=== PATIENT | female | born 1935 | race Caucasian/White ===

== ENCOUNTER → 2017-04-19 | Emergency (ER) | payer OTHER ==
[~2017-04-19] MED LIST: BACITRACIN 0.9 GM PACKET ONE; BACITRACIN 30 GM TUBE TOPICAL OINTMENT ONE
[2017-04-19 15:01] VITALS: BP 136/70; PULSE 69; TEMP 97.6; BMI 32.4
--- NOTE | 2017-04-19 15:05 | PDOC ---
History of Present Illness - General History Source: Patient, Old Records Exam Limitations: No Limitations - History of Present Illness Initial Comments: 04/19/17 15:09 The patient is an 81-year-old woman, accompanied by her daughter, with a significant past medical history of hypertension, hypercholesterolemia, atrial fibrillation(status post pacemaker), congestive heart failure (diastolic), myocardial perforation, acute kidney injury who presents to the emergency department for further evaluation status post fall. No loss of consciousness, chest pain, visual changes, palpitations, headaches, lightheadedness, dizziness , nausea, vomiting prior/post episode. Patient was going up the stairs when she possibly missed a step and fell backwards. She reports falling down approximately 7-8 steps injuring her head. No neck injury/pain. She reports that during her fall she sustained an abrasion over her left arm. Approximately 20 minutes post episode, she was able to get up and ambulate with assistance. No weakness, numbness or tingling sensations to her extremities. Last tetanus vaccination is unknown. Allergies: Sulfonamide Antibiotics. Past Surgical History: Pacemaker placement. Social History: Former smoker. No EtOH and recreational drug use. Primary Care Physician: Dr. Shannan Pedraza <Giovanna Perez - Last Filed: 04/19/17 15:38> <Morro Nunez - Last Filed: 04/19/17 16:53> - General Stated Complaint: FALL (PACEMAKER) Time Seen by Provider: 04/19/17 15:05 Past History <Giovanna Perez - Last Filed: 04/19/17 15:38> - Past Medical History Cardiac Disorders: Yes HTN: Yes Hypercholesterolemia: Yes Seizures: Yes - Psycho/Social/Smoking Cessation Hx Anxiety: No Suicidal Ideation: No Smoking History: Former smoker Have you smoked in the past 12 months: No Number of Cigarettes Smoked Daily: 0 If you are a former smoker, when did you quit?: 40yrs Information on smoking cessation initiated: No Hx Alcohol Use: No Drug/Substance Use Hx: No Substance Use Type: None <Morro Nunez - Last Filed: 04/19/17 16:53> - Past Medical History Allergies/Adverse Reactions: Allergies Allergy/AdvReac Type Severity Reaction Status Date / Time Sulfa (Sulfonamide Allergy Verified 04/19/17 15:02 Antibiotics) Home Medications: Ambulatory Orders Aspirin 81 mg PO DAILY 12/17/13 Levothyroxine [Synthroid -] 88 mcg PO DAILY 12/17/13 Ferrous Gluconate [Iron] 325 mg PO TID 08/17/14 Amlodipine Besylate [Norvasc -] 10 mg PO DAILY 10/05/15 Lactobacillus Acidophilus [Acidophilus] 1 each PO DAILY 10/05/15 Lactobacillus Combo No.10 [Probiotic] 1 each PO DAILY 10/05/15 Metoprolol Tartrate [Lopressor] 50 mg PO BID 10/05/15 Multivit-Min/Iron/Folic/Lutein [Centrum Silver Women Tablet] 1 each PO DAILY [place]-3 Fatty Acids [Fish Oil] 1,200 mg PO DAILY 10/05/15 Omeprazole [Prilosec (RX)] 20 mg PO DAILY 10/05/15 Valsartan/Hydrochlorothiazide [Diovan Hct 320-12.5 mg Tab] 1 combo PO DAILY Review of Systems - Review of Systems Able to Perform ROS?: Yes Comments:: 04/19/17 15:20 CONSTITUTIONAL: Absent: fever, chills, diaphoresis, generalized weakness, malaise, loss of appetite HEENT: Absent: rhinorrhea, nasal congestion, throat pain, throat swelling, difficulty swallowing, mouth swelling, ear pain, eye pain, visual Changes CARDIOVASCULAR: Absent: chest pain, syncope, palpitations, irregular heart rate , lightheadedness, peripheral edema RESPIRATORY: Absent: cough, shortness of breath, dyspnea with exertion, orthopnea, wheezing, stridor, hemoptysis GASTROINTESTINAL: Absent: abdominal pain, abdominal distension, nausea, vomiting , diarrhea, constipation, melena, hematochezia GENITOURINARY: Absent: dysuria, frequency, urgency, hesitancy, hematuria, flank pain, genital pain MUSCULOSKELETAL: Absent: myalgia, arthralgia, joint swelling SKIN: Present: Abrasion to the left forearm. Absent: rash, itching, pallor HEMATOLOGIC/IMMUNOLOGIC: Absent: easy bleeding, easy bruising, lymphadenopathy, frequent infections ENDOCRINE:Absent: unexplained weight gain, unexplained weight loss, heat intolerance, cold intolerance NEUROLOGIC: Absent: headache, focal weakness or paresthesias, dizziness, unsteady gait, seizure, mental status changes, bladder or bowel incontinence PSYCHIATRIC: Absent: anxiety, depression, suicidal or homicidal ideation, hallucinations <Perez,Giovanna - Last Filed: 04/19/17 15:38> *Physical Exam - Vital Signs Last Vital Signs Temp Pulse Resp BP Pulse Ox 97.6 F 69 18 136/70 98 04/19/17 14:50 04/19/17 14:50 04/19/17 14:50 04/19/17 14:50 04/19/17 14:50 - Physical Exam Comments: 04/19/17 15:20 GENERAL: Patient is awake, alert and in no acute distress. Speech is clear and appropriate. HEAD: Atraumatic and nontender. HEENT: Pupils are equal round and reactive to light, extraocular movements are intact. The tympanic membranes are clear, no hemotympanum. No facial deformity. No facial bone tenderness or step-off. No nasal septal hematoma. The oropharynx is clear. NECK: The trachea is midline, there is no stridor. There is no midline cervical spine tenderness, full range of motion of neck. CHEST: Non-tender, no ecchymosis or abrasions. Equal chest wall expansion bilaterally. No flail segments. Lungs are clear to auscultation bilaterally. CARDIOVASCULAR: S1-S2, regular rate and rhythm. No murmurs or rubs. ABDOMEN: Soft, nontender, nondistended. Bowel sounds are normoactive. There is no abdominal or flank ecchymosis. BACK/PELVIS: There is no midline thoracic or lumbosacral spine tenderness or step-off. Pelvis is stable and nontender. EXTREMITIES: Zaria is some limited range of motion to the left shoulder secondary to pain without any bony tenderness. There is no extremity deformity or joint swelling. 2+ distal pulses throughout. NEURO: Alert and oriented x3. Cranial nerves II through XII are intact. 5 out of 5 motor strength x4 extremities. No gross sensory deficits. [id number] is intact. No pronator drift. Gait is stable. SKIN: There is a 3 cm abrasion of the left forearm without any underlying bony tenderness. No hematomas, lacerations. PSYCH: Affect is appropriate <Giovanna Perez - Last Filed: 04/19/17 15:38> - Vital Signs Last Vital Signs Temp Pulse Resp BP Pulse Ox 97.6 F 69 18 136/70 98 04/19/17 14:50 04/19/17 14:50 04/19/17 14:50 04/19/17 14:50 04/19/17 14:50 <Morro Nunez - Last Filed: 04/19/17 16:53> Heart Score/ECG Review - ECG Intrepretation Comment:: 04/19/17 15:07 Normal sinus rhythm at 60, normal axis, normal intervals, no ST changes P waves are very flat and difficult to see, however I do feel that there is a regular SD interval Prior EKG shows similar P wave morphology 04/19/17 16:39 <Morro Nunez - Last Filed: 04/19/17 16:53> ED Treatment Course - LABORATORY CBC & Chemistry Diagram: 04/19/17 15:30 04/19/17 15:30 <Morro Nunez - Last Filed: 04/19/17 16:53> Medical Decision Making - Medical Decision Making 04/19/17 15:07 She is well appearing and in no acute distress She has no CTLS midline tenderness She has no bony tenderness She has a small abrasion of the left forearm (Tetanus in last 5 years) I do not see a scalp laceration, and she denies any pain in the scalp Will CT head Will obtain plain XRays of left shoulder and chest I have a very low index of suspicion for bony injury She very clearly describes a mechanical fall She has no complaints other than the abrasion and mild pain in left shoulder with active range of motion 04/19/17 16:00 04/19/17 16:19 CT head report noted, without acute intracranial pathology 04/19/17 16:24 Emergency department XRay interpretation: no evidence of acute traumatic injury on chest and shoulder films 04/19/17 16:52 Labs noted Repeat examination without evidence of injury not previously noted Creatinine is at baseline She would like to go home Clinical impression: Closed head injury without evidence of concussion Left shoulder contusion Forearm abrasion I reviewed results and discussed final diagnoses with the patient and her daughter. I answered all of their questions. They understood the need for close followup and agreed to see the PCP within 24 hours. They expressed satisfaction with the care that they received. They will return to the ED with any new, worsening or persistent symptoms. They will verify that the last tetanus vaccination was within 5 years. <Morro Nunez - Last Filed: 04/19/17 16:53> *DC/Admit/Observation/Transfer - Attestations Scribe Attestion: 04/19/17 15:20 Documentation prepared by Giovanna Perez, acting as medical care manager for Morro Nunez MD. <Giovanna Perez - Last Filed: 04/19/17 15:38> <Morro Nunez - Last Filed: 04/19/17 16:53> Diagnosis at time of Disposition: Closed head injury, Shoulder contusion, Abrasion - Discharge Dispostion Disposition: HOME Condition at time of disposition: Improved - Referrals Referrals: Shannan Pedraza [Primary Care Provider] - - Patient Instructions Printed Discharge Instructions: DI for Closed Head Injury, DI for Abrasion, Shoulder Sprain Additional Instructions: Please make sure that your doctor reviews the results of you emergency department visit. You must see your primary care doctor within 24 hours for a repeat evaluation as the emergency department visit cannot serve as a comprehensive and definitive evaluation and you require follow-up. Return to the ER with any new, worsening or persistent symptoms. Take Tylenol 500mg 5 times daily as needed for pain. - Post Discharge Activity Work/School Note: Back to Work
[2017-04-19 15:49] LABS: BASOPHIL 0.8 % (0-2.0); MCH 29.6 pg (25.7-33.7); MCHC 32.5 g/dl (32.0-36.0); MEAN CELL VOLUME 91.1 fl (80-96); MEAN PLT VOLUME 9.7 fl (7.5-11.1); NEUTROPHILS 73.9 % (42.8-82.8); PLATELET COUNT 197 K/MM3 (134-434); RDW 14.1 % (11.6-15.6); WHITE BLOOD COUNT 9.8 K/mm3 (4.0-10.0)
[2017-04-19 16:13] LABS: ALBUMIN 3.6 g/dl (3.4-5.0); ANION GAP 10 (8-16); BILIRUBIN,TOTAL 0.6 mg/dL (0.2-1.0); CALCIUM 9.1 mg/dL (8.5-10.1); CO2 25 mmol/L (21-32); COCKROFT - GAULT 29.6225; CREATININE 1.8 mg/dL (0.55-1.02); GLUCOSE,RANDOM 101 mg/dL (74-106); MAGNESIUM 2.4 mg/dL (1.8-2.4); SGOT/AST 27 U/L (15-37); SGPT/ALT 35 U/L (12-78); TOT PROT 7.3 g/dl (6.4-8.2)
[2017-04-19 16:16] LABS: ALK PHOS 71 U/L (45-117); TROPONIN I < 0.02 ng/ml (0.00-0.05)
--- NOTE | 2017-04-19 16:28 | EKG ---
Test Reason : Blood Pressure : / mmHG Vent. Rate : 058 BPM Atrial Rate : 066 BPM P-R Int : 000 ms QRS Dur : 090 ms QT Int : 406 ms P-R-T Axes : 000 008 020 degrees QTc Int : 398 ms SINUS BRADYCARDIA Confirmed by TALIA DAILEY MD ([id number]) on 04/19/2017 4:28:24 PM Referred By: Confirmed By:TALIA DAILEY MD
== END | disposition home or self-care (01) ==
LOC: JER 14:48
DX: S09.8XXA Other specified injuries of head, initial encounter (principal); S40.012A Contusion of left shoulder, initial encounter; S50.812A Abrasion of left forearm, initial encounter; W10.8XXA Fall (on) (from) other stairs and steps, initial encounter; Y93.89 Activity, other specified; Y92.89 Other specified places as the place of occurrence of the external cause; I10 Essential (primary) hypertension; E78.00 Pure hypercholesterolemia, unspecified; I48.91 Unspecified atrial fibrillation; Z79.01 Long term (current) use of anticoagulants; I50.30 Unspecified diastolic (congestive) heart failure; I25.2 Old myocardial infarction; Z95.0 Presence of cardiac pacemaker
CPT/HCPCS: 36415; 70450-TC; 71010-TC; 73030-TC-LT; 80053; 82550; 83735; 84484; 85025; 85610; 93005; 93010; 99281-25

== ENCOUNTER 2017-09-25 18:25 | Inpatient (IN) | payer OTHER, BC ==
--- NOTE | 2017-09-25 19:30 | PDOC ---
History of Present Illness - General Chief Complaint: Pain Stated Complaint: ABDOMINAL PAIN Time Seen by Provider: 09/25/17 18:56 Past History - Past Medical History Allergies/Adverse Reactions: Allergies Allergy/AdvReac Type Severity Reaction Status Date / Time Sulfa (Sulfonamide Allergy Verified 09/25/17 19:07 Antibiotics) Home Medications: Ambulatory Orders Aspirin 81 mg PO DAILY 12/17/13 Levothyroxine [Synthroid -] 88 mcg PO DAILY 12/17/13 Amlodipine Besylate [Norvasc -] 10 mg PO DAILY 10/05/15 Lactobacillus Acidophilus [Acidophilus] 1 each PO DAILY 10/05/15 Lactobacillus Combo No.10 [Probiotic] 1 each PO DAILY 10/05/15 Metoprolol Tartrate [Lopressor] 50 mg PO BID 10/05/15 Multivit-Min/Iron/Folic/Lutein [Centrum Silver Women Tablet] 1 each PO DAILY [place]-3 Fatty Acids [Fish Oil] 1,200 mg PO DAILY 10/05/15 Valsartan/Hydrochlorothiazide [Diovan Hct 320-12.5 mg Tab] 1 combo PO DAILY Famotidine [Pepcid] 20 mg PO DAILY 09/25/17 Cardiac Disorders: Yes (pacemaker) COPD: No HTN: Yes Hypercholesterolemia: Yes Seizures: Yes - Surgical History Cardiac Surgery: Yes (pacemaker) - Suicide/Smoking/Psychosocial Hx Smoking History: Never smoked Have you smoked in the past 12 months: No Number of Cigarettes Smoked Daily: 0 If you are a former smoker, when did you quit?: 40yrs Information on smoking cessation initiated: No Hx Alcohol Use: No Drug/Substance Use Hx: No Substance Use Type: None *Physical Exam - Vital Signs Last Vital Signs Temp Pulse Resp BP Pulse Ox 97.4 F L 63 18 154/74 100 09/25/17 18:49 09/25/17 18:49 09/25/17 18:49 09/25/17 18:49 09/25/17 18:49 ED Treatment Course - LABORATORY CBC & Chemistry Diagram: 09/25/17 20:30 09/25/17 20:30 *DC/Admit/Observation/Transfer Diagnosis at time of Disposition: Cholecystitis, Elevated liver enzymes Vomiting Qualifiers: Vomiting type: unspecified Vomiting Intractability: non-intractable Nausea presence: with nausea Qualified Code(s): R11.2 - Nausea with vomiting, unspecified; R11.2 - Nausea with vomiting, unspecified - Discharge Dispostion Admit: Yes - Referrals Referrals: Shannan Pedraza [Primary Care Provider] -
--- NOTE | 2017-09-25 19:33 | PDOC ---
Attending Attestation - Resident Resident Name: Shahid Vergara - ED Attending Attestation I have performed the following: I have examined & evaluated the patient, The case was reviewed & discussed with the resident, I agree w/resident's findings & plan, Exceptions are as noted - HPI HPI: 09/25/17 19:31 82 yo female BIBA for intermittent abdominal pain,increased belching that started today. Denies chest pain 09/26/17 01:19 alert and conversant 82 yo female p/w colicky epigastric pain Head ncat oral extensive crown and bridge work neck supple lungs cta b/l cvs [id number] abd epigastric tenderness, no rebound ext no deformity,moving all extremities neuro axox3,no gross focal neuro deficits 09/26/17 02:27 - Physicial Exam PE: 09/26/17 02:27 physical exam is above - Medical Decision Making 09/26/17 01:23 LFTs elevated,pt c/o nausea US: cholethiasis, GB wall thickening ,enlarged CBD leukocytosis IMP cholecystitis plan IV antibiotics,zofran,admit 09/26/17 01:26 09/26/17 02:27
--- NOTE | 2017-09-25 21:08 | PDOC ---
History of Present Illness - General Chief Complaint: Pain Stated Complaint: ABDOMINAL PAIN Time Seen by Provider: 09/25/17 18:56 History Source: Patient Exam Limitations: No Limitations - History of Present Illness Initial Comments: 09/25/17 21:01 Patient is an 82F with history of afib, CAD s/p cath and pacemaker, tachy-nadir syndrome, hiatal hernia, HLD, and hypothyroidism here today complaining of sudden onset of abdominal pain. Patient reports that the pain came on suddenly was sharp and severe. After the first episode of pain passed, she felt fine. The second episode of pain caused her to go to the hospital. Associated symptoms include nausea and bloating. She states that the pain suddenly stopped and she feels fine now. She states that she had a bowel movement today, has passed gas today and has never had any surgery on her belly. She denies ever having chest pain, increased shortness of breath, headaches, dysuria and blood in stool. Past History - Past Medical History Allergies/Adverse Reactions: Allergies Allergy/AdvReac Type Severity Reaction Status Date / Time Sulfa (Sulfonamide Allergy Verified 09/25/17 19:07 Antibiotics) Home Medications: Ambulatory Orders Aspirin 81 mg PO DAILY 12/17/13 Levothyroxine [Synthroid -] 88 mcg PO DAILY 12/17/13 Amlodipine Besylate [Norvasc -] 10 mg PO DAILY 10/05/15 Lactobacillus Acidophilus [Acidophilus] 1 each PO DAILY 10/05/15 Lactobacillus Combo No.10 [Probiotic] 1 each PO DAILY 10/05/15 Metoprolol Tartrate [Lopressor] 50 mg PO BID 10/05/15 Multivit-Min/Iron/Folic/Lutein [Centrum Silver Women Tablet] 1 each PO DAILY [place]-3 Fatty Acids [Fish Oil] 1,200 mg PO DAILY 10/05/15 Valsartan/Hydrochlorothiazide [Diovan Hct 320-12.5 mg Tab] 1 combo PO DAILY Famotidine [Pepcid] 20 mg PO DAILY 09/25/17 Cardiac Disorders: Yes (pacemaker) COPD: No HTN: Yes Hypercholesterolemia: Yes Seizures: Yes - Surgical History Cardiac Surgery: Yes (pacemaker) - Suicide/Smoking/Psychosocial Hx Smoking History: Never smoked Have you smoked in the past 12 months: No Number of Cigarettes Smoked Daily: 0 If you are a former smoker, when did you quit?: 40yrs Information on smoking cessation initiated: No Hx Alcohol Use: No Drug/Substance Use Hx: No Substance Use Type: None Review of Systems - Review of Systems Comments:: 09/25/17 21:09 GENERAL/CONSTITUTIONAL: No fever or chills. No weakness. HEAD, EYES, EARS, NOSE AND THROAT: No change in vision. No ear pain or discharge. No sore throat. CARDIOVASCULAR: No chest pain. Positive for shortness of breath at baseline. RESPIRATORY: No cough, wheezing, or hemoptysis. GASTROINTESTINAL: Positive for nausea. Negative for vomiting, diarrhea or constipation. GENITOURINARY: No dysuria, frequency, or change in urination. MUSCULOSKELETAL: No joint or muscle swelling or pain. No neck or back pain. SKIN: No rash NEUROLOGIC: No headache, vertigo, loss of consciousness, or change in strength/ sensation. ENDOCRINE: No increased thirst. No abnormal weight change ALLERGIC/IMMUNOLOGIC: No hives or skin allergy. *Physical Exam - Vital Signs Last Vital Signs Temp Pulse Resp BP Pulse Ox 97.4 F L 63 18 154/74 100 09/25/17 18:49 09/25/17 18:49 09/25/17 18:49 09/25/17 18:49 09/25/17 18:49 - Physical Exam Comments: 09/25/17 21:09 GENERAL: Awake, alert, and fully oriented, in no acute distress HEAD: No signs of trauma, normocephalic, atraumatic EYES: PERRLA, EOMI, sclera anicteric, conjunctiva clear ENT: Auricles normal inspection, hearing grossly normal, nares patent, oropharynx clear without exudates. Moist mucosa NECK: Normal ROM, supple, no lymphadenopathy, JVD, or masses LUNGS: No distress, speaks full sentences, clear to auscultation bilaterally HEART: Regular rate and rhythm, normal S1 and S2, no murmurs, rubs or gallops, peripheral pulses normal and equal bilaterally. ABDOMEN: Soft, nontender, normoactive bowel sounds. No guarding, no rebound. No masses EXTREMITIES: Normal inspection, Normal range of motion, no edema. No clubbing or cyanosis. NEUROLOGICAL: Cranial nerves II through XII grossly intact. Normal speech, no focal sensorimotor deficits SKIN: Warm, Dry, normal turgor, no rashes or lesions noted. ED Treatment Course - LABORATORY CBC & Chemistry Diagram: 09/25/17 20:30 09/25/17 20:30 - RADIOLOGY Radiology Studies Ordered: Category Date Time Status CHEST X-RAY PORTABLE* [RAD] Stat Radiology 09/25/17 19:25 Completed Medical Decision Making - Medical Decision Making 09/25/17 21:10 Patient is an 82F with history of afib, CAD s/p cath and pacemaker, tachy-nadir syndrome, hiatal hernia, HLD, and hypothyroidism here today complaining of sudden onset of abdominal pain. Vital signs stable and normal. Current pain free. More concerned for an atypical presentation of cardiac issue than intraperitoneal issue. Will evaluate with heart work up. 09/25/17 21:12 CXR shows a tortuous aortic aorta but no acute issues. Shows dual chamber pacemaker. EKG shows a junctional rhythm. Regular rate. No st elevations or t wave inversions. Normal NV and QTc intervals. Reassuring EKG. 09/25/17 22:13 Laboratory Tests 09/25/17 09/25/17 09/25/17 20:30 20:30 20:30 WBC 15.2 H D Hgb 10.4 L Hct 31.4 L Plt Count 268 D Neutrophils % 88.0 H INR 0.97 AST 425 H D ALT 253 H D Alkaline Phosphatase 214 H D Troponin I < 0.02 CBC shows leukocytosis. Abdominal pain has returned. Liver enzymes elevated. UA/ UC added. Signed out to Dr Key regarding ultrasound vs CT for imaging. *DC/Admit/Observation/Transfer Diagnosis at time of Disposition: Abdominal pain
[2017-09-25 21:11] LABS: BASOPHIL 0.4 % (0-2.0); EOSINOPHIL 0.4 % (0-4.5); MCH 29.3 pg (25.7-33.7); MEAN PLT VOLUME 8.9 fl (7.5-11.1); PLATELET COUNT 268 K/MM3 (134-434); WHITE BLOOD COUNT 15.2 K/mm3 (4.0-10.0)
[2017-09-25 21:28] LABS: INR 0.97 (0.82-1.09)
[2017-09-25 21:55] LABS: ALBUMIN 3.4 g/dl (3.4-5.0); ANION GAP 7 (8-16); CALCIUM 8.9 mg/dL (8.5-10.1); CO2 26 mmol/L (21-32); CREATININE 1.9 mg/dL (0.55-1.02); GLUCOSE,RANDOM 118 mg/dL (74-106); MAGNESIUM 2.2 mg/dL (1.8-2.4); SGPT/ALT 253 U/L (12-78)
[2017-09-25 21:59] LABS: ALK PHOS 214 U/L (45-117); BILIRUBIN,TOTAL 0.8 mg/dL (0.2-1.0); CPK 64 IU/L (26-192); TOT PROT 7.4 g/dl (6.4-8.2); TROPONIN I < 0.02 ng/ml (0.00-0.05)
[2017-09-25 22:03] LABS: SGOT/AST 425 U/L (15-37)
[2017-09-25 22:22] LABS: URINE APPEARANCE CLEAR; URINE BILIRUBIN NEGATIVE (NEGATIVE); URINE BLOOD NEGATIVE (NEGATIVE); URINE COLOR LTYELLOW; URINE GLUCOSE (UA) NEGATIVE (NEGATIVE); URINE KETONE NEGATIVE (NEGATIVE); URINE NITRITE NEGATIVE (NEGATIVE); URINE PROTEIN NEGATIVE (NEGATIVE)
[2017-09-26] MEDS ORDERED: PIPERACILLIN/TAZOB 3.375 GM 50 ML IVPB ONE (00:41)
[2017-09-26] MEDS ORDERED: SODIUM CHLORIDE 1,000 ML IV SCH (01:15)
--- NOTE | 2017-09-26 01:41 | PN ---
Teaching Attending Note Name of Resident: Brianne Joyce ATTENDING PHYSICIAN STATEMENT I saw and evaluated the patient. I reviewed the resident's note and discussed the case with the resident. I agree with the resident's findings and plan as documented. SUBJECTIVE: 82 F with Pmhx Afib(not on A/C), Tachy-Jose syndrome with PPM placement, hiatal hernia, CKD, CHF (diastolic)HLD, and hypothyriodism who presents with abdominal pain. Pain is located near right upper quadrant. Pain was sharp and intermittent. Pain went away and recoccurred and she called EMS. No chest pain or pressure. OF NOTE: Pt. is refusin IV placement at this time and IV antibiotics, Risks and benefits of both have been explained to her. Pt, understands that she could clinically worsen without antibiotics and stated she understood and will think about getting Treatment. OBJECTIVE: Physical: VS: Vital Signs Period Temp Pulse Resp BP Sys/Griffin Pulse Ox Last 24 Hr 97.4 F 63 18 154/74 100 GEN: NAd, resting in bed, AA0X3 HEENT: NCAT, PERRL, Throat without erythema or exudates CARD: RRR S1, S2 RESP: CTAB ABD: BSx4, NTD to palpation EXT: - C/C/E CBCD WBC 15.2 K/mm3 (4.0-10.0) H D 09/25/17 20:30 RBC 3.53 M/mm3 (3.60-5.2) L 09/25/17 20:30 Hgb 10.4 GM/dL (10.7-15.3) L 09/25/17 20:30 Hct 31.4 % (32.4-45.2) L 09/25/17 20:30 MCV 89.0 fl (80-96) 09/25/17 20:30 MCHC 33.0 g/dl (32.0-36.0) 09/25/17 20:30 RDW 14.0 % (11.6-15.6) 09/25/17 20:30 Plt Count 268 K/MM3 (134-434) D 09/25/17 20:30 MPV 8.9 fl (7.5-11.1) 09/25/17 20:30 CMP Sodium 140 mmol/L (136-145) 09/25/17 20:30 Potassium 5.0 mmol/L (3.5-5.1) 09/25/17 20:30 Chloride 107 mmol/L (98-107) 09/25/17 20:30 Carbon Dioxide 26 mmol/L (21-32) 09/25/17 20:30 Anion Gap 7 (8-16) L 09/25/17 20:30 BUN 49 mg/dL (7-18) H 09/25/17 20:30 Creatinine 1.9 mg/dL (0.55-1.02) H 09/25/17 20:30 Creat Clearance w eGFR 25.37 (>60) 09/25/17 20:30 Random Glucose 118 mg/dL (74-106) H 09/25/17 20:30 Calcium 8.9 mg/dL (8.5-10.1) 09/25/17 20:30 Total Bilirubin 0.8 mg/dL (0.2-1.0) D 09/25/17 20:30 AST 425 U/L (15-37) H D 09/25/17 20:30 ALT 253 U/L (12-78) H D 09/25/17 20:30 Alkaline Phosphatase 214 U/L (45-117) H D 09/25/17 20:30 Total Protein 7.4 g/dl (6.4-8.2) 09/25/17 20:30 Albumin 3.4 g/dl (3.4-5.0) 09/25/17 20:30 CARDIAC ENZYMES Creatine Kinase 64 IU/L (26-192) 09/25/17 20:30 Troponin I < 0.02 ng/ml (0.00-0.05) 09/25/17 20:30 Ambulatory Orders Aspirin 81 mg PO DAILY 12/17/13 Levothyroxine [Synthroid -] 88 mcg PO DAILY 12/17/13 Amlodipine Besylate [Norvasc -] 10 mg PO DAILY 10/05/15 Lactobacillus Acidophilus [Acidophilus] 1 each PO DAILY 10/05/15 Lactobacillus Combo No.10 [Probiotic] 1 each PO DAILY 10/05/15 Metoprolol Tartrate [Lopressor] 50 mg PO BID 10/05/15 Multivit-Min/Iron/Folic/Lutein [Centrum Silver Women Tablet] 1 each PO DAILY [place]-3 Fatty Acids [Fish Oil] 1,200 mg PO DAILY 10/05/15 Valsartan/Hydrochlorothiazide [Diovan Hct 320-12.5 mg Tab] 1 combo PO DAILY Famotidine [Pepcid] 20 mg PO DAILY 09/25/17 ABD-US Limited- Liver suggests fatty infilteration, cholithiasis and gallbladder wall thickening. Wall measures 7mm, CBD is 9mm- acute choleycystitis CXR- Cardiomegaly EKG-Jxnal Rhythem ASSESSMENT AND PLAN: 82 F with Pmhx Afib(not on A/C), Tachy-Jose syndrome with PPM placement, hiatal hernia, HLD, and hypothyriodism who presents with abdominal jennifer, found to have acute choleycystitis 1.) Acute Choleycystitis - NPO - Zosyn- Renally dose - ID consult - Cx - Sx consult - Type & Screen - Hold ASA - Zofran prn nausea 2.) Afib - Rate controlled - C/W BB - Not on A/C- Pt, refused 3.) GERD - C/W Pepcid 4.) HTN - Hold Hctz 5.) CHF - Not in Exacerbation - C/W home meds 6.) MELODY on CKD - Last Cr 1.8 - Hold diuretic - Avoid nephrotoxins 6.) Hypothyroidism - C/W Levothyroxine 6.) Dvt Ppx - SCDs Place in Med-Sx
[2017-09-26] MEDS ORDERED: PIPERACILLIN/TAZOB 3.375 GM 3.375 GM/50 ML BAG IVPB ONE (01:46)
[2017-09-26] MEDS ORDERED: morphine CARPU-JECT 2 MG/1 ML DISP.SYRIN IVPUSH PRN ×2 (02:01→03:10)
--- NOTE | 2017-09-26 02:04 | HP ---
CHIEF COMPLAINT: Abdominal pain x1 day PCP: HISTORY OF PRESENT ILLNESS: Patient is an 82F with history of afib, CAD s/p cath and pacemaker, tachy-nadir syndrome, hiatal hernia, HLD, and hypothyroidism here today complaining of sudden onset of RUQ abdominal pain which began today at 4 pm. Patient states that earlier in the day she ate non fatty food. Patient states that she had two episodes of the pain and both times the pain resolved on its own. Patient states that the pain was 10/10 at its worst and felt like strangulated bowel. Patient states she never had this kind of pain before. She states that the pain radiates to her right back. She also reports that she felt nauseous with the pain but denies any episodes of vomiting. She states that she had a large bowel movement this morning that was bulky, but normal color. Patient reports increased flatulence and belching. Patient currently denies fever, chills, dizziness, nausea, vomiting, abdominal pain, diarrhea, constipation or dysuria. ER course was notable for: (1) CXR shows a tortuous aortic aorta but no acute issues. Shows dual chamber pacemaker. (2) EKG shows a junctional rhythm. Regular rate. No st elevations or t wave inversions. Normal TX and QTc intervals. (3) ABD-US Limited- Liver suggests fatty infilteration, cholithiasis and gallbladder wall thickening. 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, Smoking:former 40 pack year smoker, quit 40 years ago Alcohol: denies Drugs: denies Family History: Allergies Sulfa (Sulfonamide Antibiotics) Allergy (Verified 09/25/17 19:07) HOME MEDICATIONS: Home Medications Medication Instructions Recorded Aspirin 81 mg PO DAILY 12/17/13 Levothyroxine [Synthroid -] 88 mcg PO DAILY 12/17/13 Amlodipine Besylate [Norvasc -] 10 mg PO DAILY 10/05/15 Lactobacillus Acidophilus 1 each PO DAILY 10/05/15 [Acidophilus] Lactobacillus Combo No.10 1 each PO DAILY 10/05/15 [Probiotic] Metoprolol Tartrate [Lopressor] 50 mg PO BID 10/05/15 Multivit-Min/Iron/Folic/Lutein 1 each PO DAILY 10/05/15 [Centrum Silver Women Tablet] [place]-3 Fatty Acids [Fish Oil] 1,200 mg PO DAILY 10/05/15 Valsartan/Hydrochlorothiazide 1 combo PO DAILY 10/05/15 [Diovan Hct 320-12.5 mg Tab] Famotidine [Pepcid] 20 mg PO DAILY 09/25/17 REVIEW OF SYSTEMS CONSTITUTIONAL: Absent: fever, chills, diaphoresis, generalized weakness, malaise, loss of appetite, weight change HEENT: Absent: rhinorrhea, nasal congestion, throat pain, throat swelling, difficulty swallowing, mouth swelling, ear pain, eye pain, visual changes CARDIOVASCULAR: Absent: chest pain, syncope, palpitations, irregular heart rate, lightheadedness , peripheral edema RESPIRATORY: Absent: cough, shortness of breath, dyspnea with exertion, orthopnea, wheezing, stridor, hemoptysis GASTROINTESTINAL: Absent: abdominal pain+, abdominal distension, nausea, vomiting, diarrhea, constipation, melena, hematochezia GENITOURINARY: Absent: dysuria, frequency, urgency, hesitancy, hematuria, flank pain, genital pain MUSCULOSKELETAL: Absent: myalgia, arthralgia+, joint swelling, back pain, neck pain SKIN: Absent: rash, itching, pallor HEMATOLOGIC/IMMUNOLOGIC: Absent: easy bleeding, easy bruising, lymphadenopathy, frequent infections ENDOCRINE: Absent: unexplained weight gain, unexplained weight loss, heat intolerance, cold intolerance NEUROLOGIC: Absent: headache, focal weakness or paresthesias, dizziness, unsteady gait, seizure, mental status changes, bladder or bowel incontinence PSYCHIATRIC: Absent: anxiety, depression, suicidal or homicidal ideation, hallucinations. PHYSICAL EXAMINATION GENERAL: Awake, alert, and fully oriented, in no acute distress. HEAD: Normal with no signs of trauma. EYES: Pupils equal, round and reactive to light, extraocular movements intact, sclera anicteric, conjunctiva clear. EARS, NOSE, THROAT: oropharynx clear without exudates. Moist mucous membranes. NECK: Normal range of motion, supple, No JVD LUNGS: Breath sounds equal, clear to auscultation bilaterally. HEART: Regular rate and rhythm, normal S1 and S2, 2/6 murmur heard best LLSB, ABDOMEN: Soft, nontender,absent murphys sign, not distended, normoactive bowel sounds, no guarding, no rebound, no masses. MUSCULOSKELETAL: No bony deformities or tenderness. No CVA tenderness. UPPER EXTREMITIES: 2+ pulses, warm, well-perfused. No cyanosis. No clubbing. No peripheral edema. LOWER EXTREMITIES: Limited range of motion R LLE (reports hip pain). No peripheral edema NEUROLOGICAL: Cranial nerves II-XII intact. Normal speech. PSYCHIATRIC: Cooperative. Good eye contact. Appropriate mood and affect. ASSESSMENT/PLAN: Patient is an 82F with history of afib, CAD s/p cath and pacemaker, tachy-nadir syndrome, hiatal hernia, HLD, and hypothyroidism here today complaining of sudden onset of RUQ abdominal pain with ABD-US -acute choleycystitis #Acute Cholecystitis -Recurrent RUQ colicky abd pain, transaminitis, US showing cholelithiasis and gallbladder wall thickening -leucocytosis-15.2, pt is on BB and could have masked tachycardia -lipase -300s -elevated urobilinogen -iv Zosyn 3.35g stat -given -ID consult -LR @ 75/hr -Surgery consult -Dr Verma -Iv morphine 4mg Q4H PRN -NPO except meds -patient unsure whether she wants surgery -TTE; will need cardio clearance if opts for surgery -CMP, CBC, type and screen -Coags -GI consult -For likely surgery #Transaminitis -Could be due to cholecystitis -Hepatitis panel -GI consult-Dr Henson #CAD -CAD s/p cath and pacemaker -Cardio clearance needed for Sx -EKG -Trans thoracic ECHO #HTN -Continue Metoprolol 50 mg PO BID -Continue Diovan Hct 320-12.5 mg Tab #HLD -Not on home statins #A fib not on ac -Cont metoprolol 50 mg PO BID -Continue ASA #hypothyroidism -Continue synthroid 88mcg PO daily #MELODY on CKD -Baseline Cr-1.4 -Rehydrate -Monitor #GERD -Hold famotidine -IV Protonix 40mg daily #Prophylaxis -Hold heparin for surgery --IV Protonix 40mg daily #FEN -IV LR @ 75/hr -BMP, P, Mg, monitor and replete as needed -NPO for now #Dispo -Admit Med Surg Visit type - Emergency Visit Emergency Visit: Yes ED Registration Date: 09/26/17 Care time: The patient presented to the Emergency Department on the above date and was hospitalized for further evaluation of their emergent condition. - New Patient This patient is new to me today: Yes Date on this admission: 09/26/17 - Critical Care Critical Care patient: No
--- NOTE | 2017-09-26 02:57 | HP ---
CHIEF COMPLAINT: PCP: Dr Adams HISTORY OF PRESENT ILLNESS: This is an 82 yo F with PMH of cholelithiasis, previous biliary colic, afib not on ac, CAD s/p cath and pacemaker, tachy-nadir syndrome, hiatal hernia, HLD, and hypothyroidism, who presents due to sudden onset of abdominal pain at 4 pm, found to have thickened GB on US, cholelithiasis, CBD 9mm. Patient started after a meal, is sharp, constant, epigastric 10/10, radiating to back, associated with nausea, bloating and chills. Pain spontaneously stopped in ED. She has had similar but less severe pain before. Last normal BM was today. She has not had prior abd jean. Her last cardiac imaging was done about 2 yrs ago. She denies CP, palpitations, SOB, orthopnea, cough, h/a, dysuri, melena, hematochezia, fever, vomiting. ER course was notable for: (1)labs (2)cxr, RUQ US (3)zosyn Recent Travel: denies PAST MEDICAL HISTORY: as above PAST SURGICAL HISTORY: as above Social History: lives at home alone Smoking: former Alcohol:denies Drugs: denies Family History: noncontributory Allergies Sulfa (Sulfonamide Antibiotics) Allergy (Verified 09/25/17 19:07) HOME MEDICATIONS: Home Medications Medication Instructions Recorded Aspirin 81 mg PO DAILY 12/17/13 Levothyroxine [Synthroid -] 88 mcg PO DAILY 12/17/13 Amlodipine Besylate [Norvasc -] 10 mg PO DAILY 10/05/15 Lactobacillus Acidophilus 1 each PO DAILY 10/05/15 [Acidophilus] Lactobacillus Combo No.10 1 each PO DAILY 10/05/15 [Probiotic] Metoprolol Tartrate [Lopressor] 50 mg PO BID 10/05/15 Multivit-Min/Iron/Folic/Lutein 1 each PO DAILY 10/05/15 [Centrum Silver Women Tablet] [place]-3 Fatty Acids [Fish Oil] 1,200 mg PO DAILY 10/05/15 Valsartan/Hydrochlorothiazide 1 combo PO DAILY 10/05/15 [Diovan Hct 320-12.5 mg Tab] Famotidine [Pepcid] 20 mg PO DAILY 09/25/17 REVIEW OF SYSTEMS CONSTITUTIONAL: Absent: fever, diaphoresis, generalized weakness, weight change HEENT: Absent: rhinorrhea, nasal congestion, throat pain CARDIOVASCULAR: Absent: chest pain, syncope, palpitations, irregular heart rate, lightheadedness , peripheral edema RESPIRATORY: Absent: cough, shortness of breath, dyspnea with exertion, orthopnea, wheezing, stridor, hemoptysis GASTROINTESTINAL: Absent: vomiting, diarrhea, constipation, melena, hematochezia GENITOURINARY: Absent: dysuria MUSCULOSKELETAL: Absent: back pain, neck pain SKIN: Absent: rash, itching, pallor HEMATOLOGIC/IMMUNOLOGIC: Absent: frequent infections ENDOCRINE: Absent: heat intolerance, cold intolerance NEUROLOGIC: Absent: headache, focal weakness or paresthesias PSYCHIATRIC: Absent: anxiety, depression PHYSICAL EXAMINATION GENERAL: Awake, alert, and fully oriented, in no acute distress. HEAD: Normal with no signs of trauma. EYES: Pupils equal, round and reactive to light, extraocular movements intact, sclera anicteric, conjunctiva clear. No lid lag. EARS, NOSE, THROAT: Moist mucous membranes. NECK: supple without JVD LUNGS: Breath sounds equal, clear to auscultation bilaterally. HEART: Regular rate and rhythm, normal S1 and S2 ABDOMEN: Soft, mildly tender epigastric, not distended, normoactive bowel sounds , no guarding, no rebound, no masses. MUSCULOSKELETAL: No CVA tenderness. UPPER EXTREMITIES: 2+ pulses, warm, well-perfused. No peripheral edema. LOWER EXTREMITIES: 2+ pulses, warm, well-perfused. No calf tenderness. No peripheral edema. NEUROLOGICAL: Cranial nerves II-XII grossly intact. Normal speech. PSYCHIATRIC: Cooperative. Good eye contact. Appropriate mood and affect. SKIN: Warm, dry ASSESSMENT/PLAN: This is an 82 yo F with PMH of cholelithiasis, previous biliary colic, afib, CAD s/p cath and pacemaker, tachy-nadir syndrome, hiatal hernia, HLD, and hypothyroidism, who presents due to sudden onset of abdominal pain at 4 pm, found to have thickened GB on US, cholelithiasis, CBD 9mm. Acute Cholecystitis -pain >6hr -RUQ US choleithiasis, thickened GB wall CBD 9mm -lipase p/d -transaminitis, t bili wnl -elevated urobilinogen -Zosyn, ID consult -LR hydration -Surgery consult -PRN morphine for pain -NPO except meds -patient unsure whether she wants surgery -TTE; will need cardio clearance if opts for surgery CAD HLD A fib not on ac hypothyroidism -resume home meds Dispo: adm med jean Visit type - Emergency Visit Emergency Visit: Yes ED Registration Date: 09/26/17 Care time: The patient presented to the Emergency Department on the above date and was hospitalized for further evaluation of their emergent condition. - New Patient This patient is new to me today: Yes Date on this admission: 09/26/17 - Critical Care Critical Care patient: No
[2017-09-26] MEDS ORDERED: HEPARIN NA (PORCINE) 5,000 UNITS/ML 1ML VIAL SQ SCH (06:00)
[2017-09-26 09:11] LABS: BASOPHIL 0.7 % (0-2.0); EOSINOPHIL 3.2 % (0-4.5); MCH 29.3 pg (25.7-33.7); MCHC 33.2 g/dl (32.0-36.0); MEAN CELL VOLUME 88.4 fl (80-96); MEAN PLT VOLUME 8.6 fl (7.5-11.1); NEUTROPHILS 68.5 % (42.8-82.8); PLATELET COUNT 246 K/MM3 (134-434); RDW 13.4 % (11.6-15.6); WHITE BLOOD COUNT 8.3 K/mm3 (4.0-10.0)
[2017-09-26 09:37] LABS: ALBUMIN 3.2 g/dl (3.4-5.0); ANION GAP 7 (8-16); BILIRUBIN,TOTAL 1.1 mg/dL (0.2-1.0); CO2 24 mmol/L (21-32); CREATININE 1.9 mg/dL (0.55-1.02); GLUCOSE,RANDOM 86 mg/dL (74-106); MAGNESIUM 2.2 mg/dL (1.8-2.4); PHOSPHOROUS 3.2 mg/dL (2.5-4.9); TOT PROT 6.7 g/dl (6.4-8.2)
[2017-09-26 09:42] LABS: ALK PHOS 270 U/L (45-117)
[2017-09-26 09:50] LABS: SGOT/AST 1152 U/L (15-37); SGPT/ALT 944 U/L (12-78)
[2017-09-26] MEDS: HYDROCHLOROTHIAZIDE 12.5 MG CAPSULE (FP) PO SCH (09:59)
[2017-09-26] MEDS: VALSARTAN 160 MG TABLET (UD) PO SCH (10:00)
[2017-09-26] MEDS ORDERED: PATIENT'S OWN MEDICATION (NON-FORMULARY) (Valsartan/Hydrochlorothiazide [Diovan Hct 320-12 PO SCH (10:00)
[2017-09-26] MEDS: METOPROLOL TARTRATE 50 MG TABLET (FP) PO SCH ×2 (10:00→21:32)
[2017-09-26] MEDS: PANTOPRAZOLE SODIUM 40 MG VIAL IVPUSH SCH (10:01)
[2017-09-26] MEDS: LACTATED RINGERS SOLUTION 1,000 ML IV SCH ×2 (10:01→17:46)
[2017-09-26] MEDS: LEVOTHYROXINE NA 88 MCG TABLET (FP) PO SCH (10:01)
[2017-09-26] MEDS: amLODIPine BESYLATE 10 MG TABLET (FP) PO SCH (10:01)
--- NOTE | 2017-09-26 10:37 | CON.GI ---
Consult Consult Specialty:: GI Referred by:: service Reason for Consultation:: RUQ pain - History of Present Illness History of Present Illness: Chart, H&P, ED records reviewed. An 82 yof with multiple medical problems developer RUQ, severe, non-radiating abdominal pain 1 day ago while at home. The pain was associated with one episode of loose stool, nausea without vomiting, jaundice, fever, or chills. Evaluatd in ED nd found to have transamititis with elevated ALP, mils leukocytosis, normal Bili and UA. Lipase was not done. No significant weight loss, hematochezia, melena, hematemesis. - History Source History Provided By: Patient, Medical Record Limitations to Obtaining History: No Limitations - Past Medical History Cardio/Vascular: Yes: AFIB, CHF - Past Surgical History Past Surgical History: Yes: Permanent Pacemaker - Alcohol/Substance Use Hx Alcohol Use: No - Smoking History Smoking history: Never smoked Have you smoked in the past 12 months: No Aproximately how many cigarettes per day: 0 If you are a former smoker, when did you quit?: 40yrs Home Medications - Allergies Allergies/Adverse Reactions: Allergies Allergy/AdvReac Type Severity Reaction Status Date / Time Sulfa (Sulfonamide Allergy Verified 09/25/17 19:07 Antibiotics) - Home Medications Home Medications: Ambulatory Orders Aspirin 81 mg PO DAILY 12/17/13 Levothyroxine [Synthroid -] 88 mcg PO DAILY 12/17/13 Amlodipine Besylate [Norvasc -] 10 mg PO DAILY 10/05/15 Lactobacillus Acidophilus [Acidophilus] 1 each PO DAILY 10/05/15 Lactobacillus Combo No.10 [Probiotic] 1 each PO DAILY 10/05/15 Metoprolol Tartrate [Lopressor] 50 mg PO BID 10/05/15 Multivit-Min/Iron/Folic/Lutein [Centrum Silver Women Tablet] 1 each PO DAILY [place]-3 Fatty Acids [Fish Oil] 1,200 mg PO DAILY 10/05/15 Valsartan/Hydrochlorothiazide [Diovan Hct 320-12.5 mg Tab] 1 combo PO DAILY Famotidine [Pepcid] 20 mg PO DAILY 09/25/17 Family Disease History - Family Disease History Family History: Unremarkable Review of Systems Findings/Remarks: please refer to H&P, HPI Physical Exam-GI Vital Signs: Vital Signs Temperature 97.4 F L 09/25/17 18:49 Pulse Rate 63 09/25/17 18:49 Respiratory Rate 18 09/25/17 18:49 Blood Pressure 154/74 09/25/17 18:49 O2 Sat by Pulse Oximetry (%) 100 09/25/17 18:49 Constitutional: Yes: Well Nourished, No Distress, Calm Eyes: Yes: Conjunctiva Clear HENT: Yes: Atraumatic Neck: Yes: Supple Cardiovascular: Yes: Pulse Irregular Respiratory: Yes: Regular Gastrointestinal Inspection: No: Distention ...Auscultate: Yes: Normoactive Bowel Sounds ...Palpate: Yes: Soft, Other (negative Roberson's). No: Tenderness Neurological: Yes: Alert, Oriented Labs: CBC, BMP 09/26/17 08:35 09/26/17 08:35 INR, PTT INR 0.97 (0.82-1.09) 09/25/17 20:30 CBCD WBC 8.3 K/mm3 (4.0-10.0) D 09/26/17 08:35 RBC 3.32 M/mm3 (3.60-5.2) L 09/26/17 08:35 Hgb 9.7 GM/dL (10.7-15.3) L 09/26/17 08:35 Hct 29.3 % (32.4-45.2) L 09/26/17 08:35 MCV 88.4 fl (80-96) 09/26/17 08:35 MCHC 33.2 g/dl (32.0-36.0) 09/26/17 08:35 RDW 13.4 % (11.6-15.6) 09/26/17 08:35 Plt Count 246 K/MM3 (134-434) 09/26/17 08:35 MPV 8.6 fl (7.5-11.1) 09/26/17 08:35 CMP Sodium 143 mmol/L (136-145) 09/26/17 08:35 Potassium 4.6 mmol/L (3.5-5.1) 09/26/17 08:35 Chloride 112 mmol/L (98-107) H 09/26/17 08:35 Carbon Dioxide 24 mmol/L (21-32) 09/26/17 08:35 Anion Gap 7 (8-16) L 09/26/17 08:35 BUN 42 mg/dL (7-18) H 09/26/17 08:35 Creatinine 1.9 mg/dL (0.55-1.02) H 09/26/17 08:35 Creat Clearance w eGFR 25.37 (>60) 09/26/17 08:35 Calcium 9.0 mg/dL (8.5-10.1) 09/26/17 08:35 Total Bilirubin 1.1 mg/dL (0.2-1.0) H D 09/26/17 08:35 AST 1152 U/L (15-37) H 09/26/17 08:35 ALT 944 U/L (12-78) H D 09/26/17 08:35 Alkaline Phosphatase 270 U/L (45-117) H D 09/26/17 08:35 Total Protein 6.7 g/dl (6.4-8.2) 09/26/17 08:35 Albumin 3.2 g/dl (3.4-5.0) L 09/26/17 08:35 Imaging - Results Ultrasound: Report Reviewed (CBD 9mm, Stone in GB neck, thickened GB) Problem List - Problems (1) Cholecystitis Code(s): K81.9 - CHOLECYSTITIS, UNSPECIFIED (2) Elevated liver enzymes Code(s): R74.8 - ABNORMAL LEVELS OF OTHER SERUM ENZYMES (3) Rapid atrial fibrillation Code(s): I48.91 - UNSPECIFIED ATRIAL FIBRILLATION (4) Dilated cbd, acquired Code(s): K83.8 - OTHER SPECIFIED DISEASES OF BILIARY TRACT (5) Choledocholithiasis with acute cholecystitis Code(s): K80.42 - CALCULUS OF BILE DUCT W ACUTE CHOLECYSTITIS W/O OBSTRUCTION Assessment/Plan Hx of GS x 50 years. Current events, imaging and laboratory findings suggest acute [place] with possible choledocolitiasis. CBD ~ 9 mm, which is slightly above normal for an 82 yo patient. Unclear if GS pancreatitis present. The patient is asymptomatic today with negative roberson's while on Abx and NPO HIDA MRCP. 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 ago, per pt's daughter. Pt has PPM ID card on her. Lipase WBC, hepatic profle, bili, ALP, electrolytes monitoring NPO except medications IVF hydration as tolerated Surgery consult Discussed with hospitalist, patient, pt's daughter.
--- NOTE | 2017-09-26 11:07 | PN ---
Progress Note (short form) - Note Progress Note: ID consult dictated imp/reccd 82 year old female with known gallstones for "years" had acute abdominal pain yesterday evening, subsided, recurred again and came to ED + chills (she always has them) no nausea or vomiting abdomnal pain has resolved no other complaints other then chronic constipation- had a bm yesterday +PPM no recent travel in last one year no recent antibiotic use no recent hospitalizations r/o cholycystitis r/o CBD stone - choledocholithiasis- GI consult-imaging per GI given she has PPM surgery consult blood cultures zosyn to continue CKD Problem List - Problems (1) Cholecystitis Code(s): K81.9 - CHOLECYSTITIS, UNSPECIFIED (2) Choledocholithiasis with acute cholecystitis Code(s): K80.42 - CALCULUS OF BILE DUCT W ACUTE CHOLECYSTITIS W/O OBSTRUCTION (3) CKD (chronic kidney disease) Code(s): N18.9 - CHRONIC KIDNEY DISEASE, UNSPECIFIED
[2017-09-26] MEDS ORDERED: PIPERACILLIN/TAZOB 2.25 GM/50 ML PREMIX BAG IVPB SCH (11:15)
[2017-09-26 11:52] VITALS: BMI 29.5
[2017-09-26] MEDS: PIPERACILLIN/TAZOB 2.25 GM 2.25 GM/50 ML BAG IVPB SCH ×3 (12:08→21:32)
--- NOTE | 2017-09-26 13:27 | CONSULT ---
Consult Consult Specialty:: Surgery Referred by:: Nicolás Galicia - History of Present Illness Chief Complaint: Abdominal pain. History of Present Illness: C/O acute onset of right upper quadrant abdominal pain , since yesterday am. pain was sharp in right upper quadrant.. Multiple medical history. Atrial fibrillation She is known to have cholelithiasis. - History Source History Provided By: Patient Limitations to Obtaining History: No Limitations - Past Medical History Cardio/Vascular: Yes: AFIB, CHF - Past Surgical History Past Surgical History: Yes: Permanent Pacemaker - Alcohol/Substance Use Hx Alcohol Use: No - Smoking History Smoking history: Never smoked Have you smoked in the past 12 months: No Aproximately how many cigarettes per day: 0 If you are a former smoker, when did you quit?: 40yrs Home Medications - Allergies Allergies/Adverse Reactions: Allergies Allergy/AdvReac Type Severity Reaction Status Date / Time Sulfa (Sulfonamide Allergy Verified 09/25/17 19:07 Antibiotics) - Home Medications Home Medications: Ambulatory Orders Aspirin 81 mg PO DAILY 12/17/13 Levothyroxine [Synthroid -] 88 mcg PO DAILY 12/17/13 Amlodipine Besylate [Norvasc -] 10 mg PO DAILY 10/05/15 Lactobacillus Acidophilus [Acidophilus] 1 each PO DAILY 10/05/15 Lactobacillus Combo No.10 [Probiotic] 1 each PO DAILY 10/05/15 Metoprolol Tartrate [Lopressor] 50 mg PO BID 10/05/15 Multivit-Min/Iron/Folic/Lutein [Centrum Silver Women Tablet] 1 each PO DAILY [place]-3 Fatty Acids [Fish Oil] 1,200 mg PO DAILY 10/05/15 Valsartan/Hydrochlorothiazide [Diovan Hct 320-12.5 mg Tab] 1 combo PO DAILY Famotidine [Pepcid] 20 mg PO DAILY 09/25/17 Review of Systems - Review of Systems Constitutional: reports: No Symptoms Eyes: reports: No Symptoms HENT: reports: No Symptoms Neck: reports: No Symptoms Cardiovascular: reports: No Symptoms Physical Exam Vital Signs: Vital Signs Temperature 98.1 F 09/26/17 11:35 Pulse Rate 67 09/26/17 11:35 Respiratory Rate 18 09/26/17 11:35 Blood Pressure 152/66 09/26/17 11:35 O2 Sat by Pulse Oximetry (%) 100 09/25/17 18:49 Labs: CBC, BMP 09/26/17 08:35 09/26/17 08:35 Imaging - Results Ultrasound: Report Reviewed, Image Reviewed (Ultrasound: gallstone in the neck of the gallbladder. 9mm common bile duct.) Problem List - Problems (1) Cholelithiasis and acute cholecystitis with obstruction Code(s): K80.01 - CALCULUS OF GALLBLADDER W ACUTE CHOLECYSTITIS W OBSTRUCTION (2) Cholelithiasis and acute cholecystitis with obstruction Code(s): K80.01 - CALCULUS OF GALLBLADDER W ACUTE CHOLECYSTITIS W OBSTRUCTION (3) Elevated liver enzymes Code(s): R74.8 - ABNORMAL LEVELS OF OTHER SERUM ENZYMES (4) Dilated cbd, acquired Code(s): K83.8 - OTHER SPECIFIED DISEASES OF BILIARY TRACT (5) Rapid atrial fibrillation Code(s): I48.91 - UNSPECIFIED ATRIAL FIBRILLATION Assessment/Plan Impression : Cholelithiasis with obstruction of gallbladdder Plan : work up to rule out common bile duct calculii and obstruction , HIDA scan and MRI requested. Hold aspirin, medical assessment for posssible cholecystectomy on Sunday ,09/28. I have explained to the patient and her daughter. If the work up is complete will schedule laparoscopic cholecystectomy on Sunday , 09/28/2017.
--- NOTE | 2017-09-26 14:41 | PN ---
Physical Exam: SUBJECTIVE: Patient seen and examined at bedside. No acute overnight events. Patient states that she does not have any more pain in her abdomen. 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 Denies chest pain, abdominal pain, fever, chills, nausea, vomiting. OBJECTIVE: Vital Signs Period Temp Pulse Resp BP Sys/Griffin Pulse Ox Last 24 Hr 97.4 F-98.4 F 63-78 16-18 142-154/66-78 100 GENERAL: The patient is awake, alert, and fully oriented, in no acute distress. HEAD: Normal with no signs of trauma. EYES: PERRL, extraocular movements intact, sclera anicteric, conjunctiva clear. No ptosis. LUNGS: Breath sounds equal, clear to auscultation bilaterally, no wheezes, no crackles, no accessory muscle use. HEART: Regular rate and rhythm, S1, S2 without murmur, rub or gallop. ABDOMEN: Soft, nontender, nondistended, normoactive bowel sounds, no guarding, no rebound, no hepatosplenomegaly, no masses. SKIN: Warm, dry, normal turgor, no rashes or lesions noted CBC, BMP 09/26/17 08:35 09/26/17 08:35 Hepatic Panel Total Bilirubin 1.1 mg/dL (0.2-1.0) H D 09/26/17 08:35 AST 1152 U/L (15-37) H 09/26/17 08:35 ALT 944 U/L (12-78) H D 09/26/17 08:35 Alkaline Phosphatase 270 U/L (45-117) H D 09/26/17 08:35 Albumin 3.2 g/dl (3.4-5.0) L 09/26/17 08:35 Active Medications Generic Name Dose Route Start Last Admin Trade Name Freq PRN Reason Stop Dose Admin Amlodipine Besylate 10 mg 09/26/17 10:00 09/26/17 10:01 Norvasc - PO 10 mg DAILY AUNDREA Administration Hydrochlorothiazide 12.5 mg 09/26/17 10:00 09/26/17 09:59 Hctz - PO 12.5 mg DAILY AUNDREA Administration Lactated Ringer's 1,000 mls @ 75 mls/hr 09/26/17 02:15 09/26/17 10:01 Lactated Ringers Solution IV Not Given ASDIR AUNDREA Piperacillin/Tazobactam/Dextrose 2.25 gm in 50 mls @ 100 mls/hr 09/26/17 11: 15 09/26/17 12:08 Zosyn 2.25gm Ivpb (Premix) IVPB 100 mls/hr Q6H-IV AUNDREA Administration Levothyroxine Sodium 88 mcg 09/26/17 07:00 09/26/17 10:01 Synthroid - PO 88 mcg DAILY@0700 AUNDREA Administration Metoprolol Tartrate 50 mg 09/26/17 10:00 09/26/17 10:00 Lopressor - PO 50 mg BID AUNDREA Administration Morphine Sulfate 2 mg 09/26/17 03:10 Morphine Injection - IVPUSH Q4H PRN PAIN Pantoprazole Sodium 40 mg 09/26/17 10:00 09/26/17 10:01 Protonix Iv IVPUSH 40 mg DAILY AUNDREA Administration Valsartan 320 mg 09/26/17 10:00 09/26/17 10:00 Diovan - PO 320 mg DAILY AUNDREA Administration IMAGING: US Liver: Fatty infiltration cholelithiasis and gallbladder wall thickening; cholecystitis; CBD 9mm Echo: RV systolic pressure elevated at 30-40mmhg, mild mitral valve thickening, moderate tricuspid regurgitation ASSESSMENT/PLAN: 82 year old female with a past medical history of afib, CAD s/p cath and pacemaker placement, tachy-nadir syndrome, HTN, hiatal hernia, HLD, and hypothyroidism is admitted to the hospital with acute cholecystitis and choledocholithiasis. #Acute Cholecystitis: symptoms have currently resolved -continue zosyn 2.25gm -pain management morphine 2mg IV push Q4 PRN -f/u MRCP, HIDA -d/w with Dr. Verma, surgery scheduled for Sunday #Hypertension/CAD -continue norvasc 10mg PO QD -continue HCTZ 12.5mg PO QD -continue metoprolol 50mg PO BID -continue valsartan 320mg PO QD #Hypothyroidism -continue synthroid 88mcg PO QD 7am #Afib - rhythm controlled, in sinus rhythm as of April -repeat EKG to confirm #FEN -NPO -electrolytes within normal limits, repeat CMP in AM -lactated ringers #Proph -pantoprazole 40mg IV QD #Dispo -continue to monitor on floors -full code Visit type - Emergency Visit Emergency Visit: No - New Patient This patient is new to me today: Yes Date on this admission: 09/26/17 - Critical Care Critical Care patient: No
--- NOTE | 2017-09-26 16:38 | CON.CARD ---
Consult Consult Specialty:: Crdiology Reason for Consultation:: preop eval - History of Present Illness Chief Complaint: abd pain History of Present Illness: Patient is an 82F with history of afib, CAD s/p cath and DDD pacemaker, tachy- nadir syndrome, hiatal hernia, HLD, and hypothyroidism here today complaining of sudden onset of RUQ abdominal pain which began today at 4 pm. Patient states that earlier in the day she ate non fatty food. Patient states that she had two episodes of the pain and both times the pain resolved on its own. Patient states that the pain was 10/10 at its worst and felt like strangulated bowel. Patient states she never had this kind of pain before. She states that the pain radiates to her right back. She also reports that she felt nauseous with the pain but denies any episodes of vomiting. She states that she had a large bowel movement this morning that was bulky, but normal color. Patient reports increased flatulence and belching. Patient currently denies fever, chills, dizziness, nausea, vomiting, abdominal pain, diarrhea, constipation or dysuria. - History Source History Provided By: Patient, Medical Record Limitations to Obtaining History: Poor Historian - Past Medical History Cardio/Vascular: Yes: AFIB, CHF - Past Surgical History Past Surgical History: Yes: Permanent Pacemaker - Alcohol/Substance Use Hx Alcohol Use: No - Smoking History Smoking history: Never smoked Have you smoked in the past 12 months: No Aproximately how many cigarettes per day: 0 If you are a former smoker, when did you quit?: 40yrs Home Medications - Allergies Allergies/Adverse Reactions: Allergies Allergy/AdvReac Type Severity Reaction Status Date / Time Sulfa (Sulfonamide Allergy Verified 09/25/17 19:07 Antibiotics) - Home Medications Home Medications: Ambulatory Orders Aspirin 81 mg PO DAILY 12/17/13 Levothyroxine [Synthroid -] 88 mcg PO DAILY 12/17/13 Amlodipine Besylate [Norvasc -] 10 mg PO DAILY 10/05/15 Lactobacillus Acidophilus [Acidophilus] 1 each PO DAILY 10/05/15 Lactobacillus Combo No.10 [Probiotic] 1 each PO DAILY 10/05/15 Metoprolol Tartrate [Lopressor] 50 mg PO BID 10/05/15 Multivit-Min/Iron/Folic/Lutein [Centrum Silver Women Tablet] 1 each PO DAILY [place]-3 Fatty Acids [Fish Oil] 1,200 mg PO DAILY 10/05/15 Valsartan/Hydrochlorothiazide [Diovan Hct 320-12.5 mg Tab] 1 combo PO DAILY Famotidine [Pepcid] 20 mg PO DAILY 09/25/17 Review of Systems - Review of Systems Constitutional: reports: No Symptoms Eyes: reports: No Symptoms HENT: reports: No Symptoms Neck: reports: No Symptoms Cardiovascular: reports: No Symptoms Gastrointestinal: reports: No Symptoms Genitourinary: reports: No Symptoms Breasts: reports: No Symptoms Reported Musculoskeletal: reports: No Symptoms Integumentary: reports: No Symptoms Neurological: reports: No Symptoms Endocrine: reports: No Symptoms Hematology/Lymphatic: reports: No Symptoms Psychiatric: reports: No Symptoms Vital Signs: Vital Signs Temperature 98.4 F 09/26/17 14:23 Pulse Rate 78 09/26/17 14:23 Respiratory Rate 16 09/26/17 14:23 Blood Pressure 142/78 09/26/17 14:23 O2 Sat by Pulse Oximetry (%) 100 09/25/17 18:49 Constitutional: Yes: Well Nourished, No Distress, Calm Eyes: Yes: WNL, Conjunctiva Clear, EOM Intact HENT: Yes: WNL, Atraumatic, Normocephalic Neck: Yes: WNL, Supple, Trachea Midline Respiratory: Yes: WNL, Regular, CTA Bilaterally Gastrointestinal: Yes: Tenderness Renal/: Yes: WNL Cardiovascular: Yes: WNL, Regular Rate and Rhythm Musculoskeletal: Yes: WNL Extremities: Yes: WNL Integumentary: Yes: WNL Neurological: Yes: WNL, Alert, Oriented ...Motor Strength: WNL Psychiatric: Yes: WNL, Alert, Oriented - Other Data Labs, Other Data: CBC, BMP 09/26/17 08:35 09/26/17 08:35 INR, PTT INR 0.97 (0.82-1.09) 09/25/17 20:30 Troponin, BNP 09/25/17 20:30 Troponin I < 0.02 Troponin, BNP 09/25/17 20:30 Troponin I < 0.02 Laboratory Tests 09/25/17 09/25/17 09/25/17 20:30 20:30 20:30 WBC 15.2 H D RBC 3.53 L Hgb 10.4 L Hct 31.4 L MCV 89.0 MCH 29.3 MCHC 33.0 RDW 14.0 Plt Count 268 D MPV 8.9 Neutrophils % 88.0 H Lymphocytes % 6.4 L D Monocytes % 4.8 Eosinophils % 0.4 D Basophils % 0.4 PT with INR 11.00 INR 0.97 Sodium 140 Potassium 5.0 Chloride 107 Carbon Dioxide 26 Anion Gap 7 L BUN 49 H Creatinine 1.9 H Creat Clearance w eGFR 25.37 Random Glucose 118 H Calcium 8.9 Phosphorus Magnesium 2.2 Total Bilirubin 0.8 D AST 425 H D ALT 253 H D Alkaline Phosphatase 214 H D Creatine Kinase 64 Troponin I < 0.02 Total Protein 7.4 Albumin 3.4 Lipase Urine Color Urine Appearance Urine pH Ur Specific [place] Urine Protein Urine Glucose (UA) Urine Ketones Urine Blood Urine Nitrite Urine Bilirubin Urine Urobilinogen 09/25/17 09/26/17 09/26/17 22:08 08:35 08:35 WBC 8.3 D RBC 3.32 L Hgb 9.7 L Hct 29.3 L MCV 88.4 MCH 29.3 MCHC 33.2 RDW 13.4 Plt Count 246 MPV 8.6 Neutrophils % 68.5 D Lymphocytes % 18.8 D Monocytes % 8.8 D Eosinophils % 3.2 D Basophils % 0.7 PT with INR INR Sodium 143 Potassium 4.6 Chloride 112 H Carbon Dioxide 24 Anion Gap 7 L BUN 42 H Creatinine 1.9 H Creat Clearance w eGFR 25.37 Random Glucose 86 D Calcium 9.0 Phosphorus 3.2 Magnesium 2.2 Total Bilirubin 1.1 H D AST 1152 H ALT 944 H D Alkaline Phosphatase 270 H D Creatine Kinase Troponin I Total Protein 6.7 Albumin 3.2 L Lipase Urine Color Ltyellow Urine Appearance Clear Urine pH 6.0 Ur Specific [place] 1.012 Urine Protein Negative Urine Glucose (UA) Negative Urine Ketones Negative Urine Blood Negative Urine Nitrite Negative Urine Bilirubin Negative Urine Urobilinogen 2.0 H 09/26/17 08:35 WBC RBC Hgb Hct MCV MCH MCHC RDW Plt Count MPV Neutrophils % Lymphocytes % Monocytes % Eosinophils % Basophils % PT with INR INR Sodium Potassium Chloride Carbon Dioxide Anion Gap BUN Creatinine Creat Clearance w eGFR Random Glucose Calcium Phosphorus Magnesium Total Bilirubin AST ALT Alkaline Phosphatase Creatine Kinase Troponin I Total Protein Albumin Lipase 344 Urine Color Urine Appearance Urine pH Ur Specific [place] Urine Protein Urine Glucose (UA) Urine Ketones Urine Blood Urine Nitrite Urine Bilirubin Urine Urobilinogen Imaging - Results Chest X-ray: Image Reviewed (cm PPM) EKG: Image Reviewed (s nadir motion artifacts) Assessment/Plan s/p DDD PPM tachy nadir sx htn ?ashd hypothyroidism ? PAF poor informant states does not have cardiologists Cholelithiasis with obstruction of gallbladdder refusing w/u or surgery echo nl ef Plan : PPM interrogation ?old records re prior cardiac w/u willf/u
--- NOTE | 2017-09-26 16:40 | PN ---
Teaching Attending Note Name of Resident: Morro Serrato ATTENDING PHYSICIAN STATEMENT Time of evaluation: 11:00 AM I saw and evaluated the patient. I reviewed the resident's note and discussed the case with the resident. I agree with the resident's findings and plan as documented. SUBJECTIVE: Patient seen and examined. no nausea, vomiting, abdominal pain. Denies any chest pain, dyspnea, dizziness or other complaints. OBJECTIVE: Vital Signs Period Temp Pulse Resp BP Sys/Griffin Pulse Ox Last 24 Hr 97.4 F-98.4 F 63-78 16-18 142-154/66-78 100 Intake & Output 09/23/17 09/24/17 09/25/17 09/26/17 23:59 23:59 23:59 23:59 Intake Total 50 Balance 50 Weight 152 lb 150 lb 14.4 oz GEneral: sitting in bed in no acute distress CVS S1S2 regular Chest CTAB, no rales or wheezing abdomen soft, NT, ND, positive bowel sounds, neg Roberson's sign Extremities no edema Home Medication List Medication Instructions Recorded Confirmed Type Aspirin 81 mg PO DAILY 12/17/13 09/25/17 History Levothyroxine [Synthroid -] 88 mcg PO DAILY 12/17/13 09/25/17 History Amlodipine Besylate [Norvasc -] 10 mg PO DAILY 10/05/15 09/25/17 History Lactobacillus Acidophilus 1 each PO DAILY 10/05/15 09/25/17 History [Acidophilus] Lactobacillus Combo No.10 1 each PO DAILY 10/05/15 09/25/17 History [Probiotic] Metoprolol Tartrate [Lopressor] 50 mg PO BID 10/05/15 09/25/17 History Multivit-Min/Iron/Folic/Lutein 1 each PO DAILY 10/05/15 09/25/17 History [Centrum Silver Women Tablet] [place]-3 Fatty Acids [Fish Oil] 1,200 mg PO DAILY 10/05/15 09/25/17 History Valsartan/Hydrochlorothiazide 1 combo PO DAILY 10/05/15 09/25/17 History [Diovan Hct 320-12.5 mg Tab] Famotidine [Pepcid] 20 mg PO DAILY 09/25/17 09/25/17 History Active Medications Generic Name Dose Route Start Last Admin Trade Name Freq PRN Reason Stop Dose Admin Amlodipine Besylate 10 mg 09/26/17 10:00 09/26/17 10:01 Norvasc - PO 10 mg DAILY AUNDREA Administration Hydrochlorothiazide 12.5 mg 09/26/17 10:00 09/26/17 09:59 Hctz - PO 12.5 mg DAILY AUNDREA Administration Lactated Ringer's 1,000 mls @ 75 mls/hr 09/26/17 02:15 09/26/17 10:01 Lactated Ringers Solution IV Not Given ASDIR AUNDREA Piperacillin/Tazobactam/Dextrose 2.25 gm in 50 mls @ 100 mls/hr 09/26/17 11: 15 09/26/17 12:08 Zosyn 2.25gm Ivpb (Premix) IVPB 100 mls/hr Q6H-IV AUNDREA Administration Levothyroxine Sodium 88 mcg 09/26/17 07:00 09/26/17 10:01 Synthroid - PO 88 mcg DAILY@0700 AUNDREA Administration Metoprolol Tartrate 50 mg 09/26/17 10:00 09/26/17 10:00 Lopressor - PO 50 mg BID AUNDREA Administration Morphine Sulfate 2 mg 09/26/17 03:10 Morphine Injection - IVPUSH Q4H PRN PAIN Pantoprazole Sodium 40 mg 09/26/17 10:00 09/26/17 10:01 Protonix Iv IVPUSH 40 mg DAILY AUNDREA Administration Valsartan 320 mg 09/26/17 10:00 09/26/17 10:00 Diovan - PO 320 mg DAILY AUNDREA Administration Laboratory Results - last 24 hr 09/25/17 09/25/17 09/25/17 20:30 20:30 20:30 WBC 15.2 H D RBC 3.53 L Hgb 10.4 L Hct 31.4 L MCV 89.0 MCH 29.3 MCHC 33.0 RDW 14.0 Plt Count 268 D MPV 8.9 Neutrophils % 88.0 H Lymphocytes % 6.4 L D Monocytes % 4.8 Eosinophils % 0.4 D Basophils % 0.4 PT with INR 11.00 INR 0.97 Sodium 140 Potassium 5.0 Chloride 107 Carbon Dioxide 26 Anion Gap 7 L BUN 49 H Creatinine 1.9 H Creat Clearance w eGFR 25.37 Random Glucose 118 H Calcium 8.9 Phosphorus Magnesium 2.2 Total Bilirubin 0.8 D AST 425 H D ALT 253 H D Alkaline Phosphatase 214 H D Creatine Kinase 64 Troponin I < 0.02 Total Protein 7.4 Albumin 3.4 Lipase Urine Color Urine Appearance Urine pH Ur Specific [place] Urine Protein Urine Glucose (UA) Urine Ketones Urine Blood Urine Nitrite Urine Bilirubin Urine Urobilinogen 09/25/17 09/26/17 09/26/17 22:08 08:35 08:35 WBC 8.3 D RBC 3.32 L Hgb 9.7 L Hct 29.3 L MCV 88.4 MCH 29.3 MCHC 33.2 RDW 13.4 Plt Count 246 MPV 8.6 Neutrophils % 68.5 D Lymphocytes % 18.8 D Monocytes % 8.8 D Eosinophils % 3.2 D Basophils % 0.7 PT with INR INR Sodium 143 Potassium 4.6 Chloride 112 H Carbon Dioxide 24 Anion Gap 7 L BUN 42 H Creatinine 1.9 H Creat Clearance w eGFR 25.37 Random Glucose 86 D Calcium 9.0 Phosphorus 3.2 Magnesium 2.2 Total Bilirubin 1.1 H D AST 1152 H ALT 944 H D Alkaline Phosphatase 270 H D Creatine Kinase Troponin I Total Protein 6.7 Albumin 3.2 L Lipase Urine Color Ltyellow Urine Appearance Clear Urine pH 6.0 Ur Specific [place] 1.012 Urine Protein Negative Urine Glucose (UA) Negative Urine Ketones Negative Urine Blood Negative Urine Nitrite Negative Urine Bilirubin Negative Urine Urobilinogen 2.0 H 09/26/17 08:35 WBC RBC Hgb Hct MCV MCH MCHC RDW Plt Count MPV Neutrophils % Lymphocytes % Monocytes % Eosinophils % Basophils % PT with INR INR Sodium Potassium Chloride Carbon Dioxide Anion Gap BUN Creatinine Creat Clearance w eGFR Random Glucose Calcium Phosphorus Magnesium Total Bilirubin AST ALT Alkaline Phosphatase Creatine Kinase Troponin I Total Protein Albumin Lipase 344 Urine Color Urine Appearance Urine pH Ur Specific [place] Urine Protein Urine Glucose (UA) Urine Ketones Urine Blood Urine Nitrite Urine Bilirubin Urine Urobilinogen ASSESSMENT AND PLAN: 82 yof with PMHx of CAD s/p cath, Afib not on AC, tachybrady syndrome s/p PPM, choledocholithiasis admitted with Acute cholecystits/cholelithiasis -Acute cholecystitis/cholethiasis -Acute transaminitis -CAD s/p cath -Aifb not on anticoagulation -Tachybrady syndrome s/p PPM Plan: Surgery/GI input appreciated. LFTs worse. abdominal symptoms resolved. For MRCP/HIDA scan, per GI, PPM MRI compatible, will follow up Plan for surgery on Sunday, pending cardiac clearance. Cardiology consulted. Zosyn day 1, monitor for now. Continue lopressor/Valsartan/HCTZ/amlodipine. IVF with monitoring. will hold hCTZ in mel-operative period. Place on DVTPPX. Dispo pending resolution of medical issues.
[2017-09-26] MEDS: HEPARIN NA (PORCINE) 5,000 UNITS/ML 1ML VIAL SQ SCH ×2 (17:47→21:32)
[2017-09-26 18:28] LABS: URINE LEUK ESTERASE Negative (NEGATIVE)
[2017-09-27] MEDS: PIPERACILLIN/TAZOB 2.25 GM 2.25 GM/50 ML BAG IVPB SCH ×4 (01:59→21:29)
[2017-09-27] MEDS: LACTATED RINGERS SOLUTION 1,000 ML IV SCH (04:15)
[2017-09-27] MEDS: LEVOTHYROXINE NA 88 MCG TABLET (FP) PO SCH (06:14)
--- NOTE | 2017-09-27 08:12 | PN ---
Physical Exam: SUBJECTIVE: Patient seen and examined at bedside. She is in no acute distress and denies any pain. Patient still refuses surgery unless it is done with a surgeon from her [facility] group that come to [facility]. Garry Alonso Weitzen were the surgeons the patient named. OBJECTIVE: Vital Signs Period Temp Pulse Resp BP Sys/Griffin Pulse Ox Last 24 Hr 97.5 F-98.7 F 52-78 16-20 121-152/58-80 96-98 GENERAL: The patient is awake, alert, and fully oriented, in no acute distress. HEAD: Normal with no signs of trauma. EYES: PERRL, extraocular movements intact, sclera anicteric, conjunctiva clear. No ptosis. LUNGS: Breath sounds equal, clear to auscultation bilaterally, no wheezes, no crackles, no accessory muscle use. HEART: Regular rate and rhythm, S1, S2 without murmur, rub or gallop. ABDOMEN: Soft, nontender, nondistended, normoactive bowel sounds, no guarding, no rebound, no hepatosplenomegaly, no masses. SKIN: Warm, dry, normal turgor, no rashes or lesions noted Laboratory Results - last 24 hr 09/25/17 09/26/17 09/26/17 22:08 08:35 08:35 WBC 8.3 D RBC 3.32 L Hgb 9.7 L Hct 29.3 L MCV 88.4 MCH 29.3 MCHC 33.2 RDW 13.4 Plt Count 246 MPV 8.6 Neutrophils % 68.5 D Lymphocytes % 18.8 D Monocytes % 8.8 D Eosinophils % 3.2 D Basophils % 0.7 Sodium 143 Potassium 4.6 Chloride 112 H Carbon Dioxide 24 Anion Gap 7 L BUN 42 H Creatinine 1.9 H Creat Clearance w eGFR 25.37 Random Glucose 86 D Calcium 9.0 Phosphorus 3.2 Magnesium 2.2 Total Bilirubin 1.1 H D AST 1152 H ALT 944 H D Alkaline Phosphatase 270 H D Total Protein 6.7 Albumin 3.2 L Lipase Ur Leukocyte Esterase Negative 09/26/17 08:35 WBC RBC Hgb Hct MCV MCH MCHC RDW Plt Count MPV Neutrophils % Lymphocytes % Monocytes % Eosinophils % Basophils % Sodium Potassium Chloride Carbon Dioxide Anion Gap BUN Creatinine Creat Clearance w eGFR Random Glucose Calcium Phosphorus Magnesium Total Bilirubin AST ALT Alkaline Phosphatase Total Protein Albumin Lipase 344 Ur Leukocyte Esterase Active Medications Generic Name Dose Route Start Last Admin Trade Name Freq PRN Reason Stop Dose Admin Amlodipine Besylate 10 mg 09/26/17 10:00 09/26/17 10:01 Norvasc - PO 10 mg DAILY AUNDREA Administration Heparin Sodium (Porcine) 5,000 unit 09/26/17 17:00 09/26/17 21:32 Heparin - SQ 5,000 unit BID AUNDREA Administration Hydrochlorothiazide 12.5 mg 09/26/17 10:00 09/26/17 09:59 Hctz - PO 12.5 mg DAILY AUNDREA Administration Lactated Ringer's 1,000 mls @ 75 mls/hr 09/26/17 02:15 09/27/17 04:15 Lactated Ringers Solution IV 75 mls/hr ASDIR AUNDREA Administration Piperacillin/Tazobactam/Dextrose 2.25 gm in 50 mls @ 100 mls/hr 09/26/17 11: 15 09/27/17 01:59 Zosyn 2.25gm Ivpb (Premix) IVPB 100 mls/hr Q6H-IV AUNDREA Administration Levothyroxine Sodium 88 mcg 09/26/17 07:00 09/27/17 06:14 Synthroid - PO 88 mcg DAILY@0700 AUNDREA Administration Metoprolol Tartrate 50 mg 09/26/17 10:00 09/26/17 21:32 Lopressor - PO 50 mg BID AUNDREA Administration Morphine Sulfate 2 mg 09/26/17 03:10 Morphine Injection - IVPUSH Q4H PRN PAIN Pantoprazole Sodium 40 mg 09/26/17 10:00 09/26/17 10:01 Protonix Iv IVPUSH 40 mg DAILY AUNDREA Administration Valsartan 320 mg 09/26/17 10:00 09/26/17 10:00 Diovan - PO 320 mg DAILY AUNDREA Administration ASSESSMENT/PLAN: US Liver: Fatty infiltration cholelithiasis and gallbladder wall thickening; cholecystitis; CBD 9mm Echo: RV systolic pressure elevated at 30-40mmhg, mild mitral valve thickening, moderate tricuspid regurgitation 82 year old female with a past medical history of afib, CAD s/p cath and pacemaker placement, tachy-nadir syndrome, HTN, hiatal hernia, HLD, and hypothyroidism is admitted to the hospital with acute cholecystitis and choledocholithiasis. #Acute Cholecystitis: symptoms have currently resolved. Patient currently asks for a surgeon from [facility] -d/w dr Burns, patient will require ERCP evaluation for stone in the common bile duct. Does not think patient has acute cholecystitis. Once ERCP is performed, surgery can be considered. -d/w dr boss, if patient is aware and agreeable to ERCP, procedure can happen tomorrow or Sunday -follow LFTs tomorrow -continue zosyn 2.25gm -pain management morphine 2mg IV push Q4 PRN -pt unable to receive MRCP at this hospital due to pacemaker #Hypertension/CAD -continue norvasc 10mg PO QD -continue HCTZ 12.5mg PO QD -continue metoprolol 50mg PO BID -continue valsartan 320mg PO QD #Hypothyroidism -continue synthroid 88mcg PO QD 7am #Afib - rhythm controlled, in sinus rhythm as of April #FEN -NPO -electrolytes within normal limits, repeat CMP in AM -lactated ringers #Proph -pantoprazole 40mg IV QD #Dispo -continue to monitor on floors -full code Visit type - Emergency Visit Emergency Visit: No - New Patient This patient is new to me today: No - Critical Care Critical Care patient: No
[2017-09-27 08:38] LABS: MCH 29.3 pg (25.7-33.7); MCHC 32.8 g/dl (32.0-36.0); MEAN CELL VOLUME 89.3 fl (80-96); PLATELET COUNT 242 K/MM3 (134-434); RDW 13.8 % (11.6-15.6); WHITE BLOOD COUNT 8.6 K/mm3 (4.0-10.0)
[2017-09-27 09:03] LABS: ANION GAP 7 (8-16); BILIRUBIN,TOTAL 1.6 mg/dL (0.2-1.0); CALCIUM 8.5 mg/dL (8.5-10.1); CO2 24 mmol/L (21-32); CREATININE 2.1 mg/dL (0.55-1.02); GLUCOSE,RANDOM 82 mg/dL (74-106); TOT PROT 6.5 g/dl (6.4-8.2)
[2017-09-27 09:05] LABS: ALK PHOS 236 U/L (45-117)
--- NOTE | 2017-09-27 10:02 | PN ---
Progress Note, Physician Chief Complaint: Pt A&O; no chest pain or dyspnea. History of Present Illness: alert and conversant 82 yo female p/w colicky epigastric pain Head ncat oral extensive crown and bridge work neck supple lungs cta b/l cvs [id number] abd epigastric tenderness, no rebound ext no deformity,moving all extremities neuro axox3,no gross focal neuro deficits - Current Medication List Current Medications: Active Medications Amlodipine Besylate (Norvasc -) 10 mg PO DAILY [facility] Last Admin: 09/26/17 10:01 Dose: 10 mg Heparin Sodium (Porcine) (Heparin -) 5,000 unit SQ BID [facility] Last Admin: 09/26/17 21:32 Dose: 5,000 unit Hydrochlorothiazide (Hctz -) 12.5 mg PO DAILY [facility] Last Admin: 09/26/17 09:59 Dose: 12.5 mg Lactated Ringer's (Lactated Ringers Solution) 1,000 mls @ 75 mls/hr IV ASDIR [facility] Last Admin: 09/27/17 04:15 Dose: 75 mls/hr Piperacillin/Tazobactam/Dextrose (Zosyn 2.25gm Ivpb (Premix)) 2.25 gm in 50 mls @ 100 mls/hr IVPB Q6H-IV [facility] Last Admin: 09/27/17 01:59 Dose: 100 mls/hr Levothyroxine Sodium (Synthroid -) 88 mcg PO DAILY@0700 [facility] Last Admin: 09/27/17 06:14 Dose: 88 mcg Metoprolol Tartrate (Lopressor -) 50 mg PO BID [facility] Last Admin: 09/26/17 21:32 Dose: 50 mg Morphine Sulfate (Morphine Injection -) 2 mg IVPUSH Q4H PRN PRN Reason: PAIN Pantoprazole Sodium (Protonix Iv) 40 mg IVPUSH DAILY [facility] Last Admin: 09/26/17 10:01 Dose: 40 mg Valsartan (Diovan -) 320 mg PO DAILY [facility] Last Admin: 09/26/17 10:00 Dose: 320 mg - Objective Vital Signs: Vital Signs Temperature 98.1 F 09/27/17 09:25 Pulse Rate 54 L 09/27/17 09:25 Respiratory Rate 18 09/27/17 09:25 Blood Pressure 154/61 09/27/17 09:25 O2 Sat by Pulse Oximetry (%) 98 09/26/17 21:00 Labs: CBC, BMP 09/27/17 08:00 INR, PTT INR 0.97 (0.82-1.09) 09/25/17 20:30 Problem List - Problems (1) CKD (chronic kidney disease) Code(s): N18.9 - CHRONIC KIDNEY DISEASE, UNSPECIFIED (2) Choledocholithiasis with acute cholecystitis Assessment/Plan: Discussed pt with [email or web address] client care representative. Pt has MRI-compatible PPM. From a cardiac standpoint, there are no absolute contraindications for her to undergo an MRI for further study of CBD. Code(s): K80.42 - CALCULUS OF BILE DUCT W ACUTE CHOLECYSTITIS W/O OBSTRUCTION (3) Elevated liver enzymes Assessment/Plan: decreasing LFTs, though still markedly elevated. F/u lipids and TSH (serially, as LFTs hopefully normalize). Code(s): R74.8 - ABNORMAL LEVELS OF OTHER SERUM ENZYMES (4) Anemia Assessment/Plan: f/u with assurance engineer. Code(s): D64.9 - ANEMIA, UNSPECIFIED
--- NOTE | 2017-09-27 10:07 | PN ---
Progress Note, Physician - Current Medication List Current Medications: Active Medications Amlodipine Besylate (Norvasc -) 10 mg PO DAILY [facility] Last Admin: 09/26/17 10:01 Dose: 10 mg Heparin Sodium (Porcine) (Heparin -) 5,000 unit SQ BID [facility] Last Admin: 09/26/17 21:32 Dose: 5,000 unit Hydrochlorothiazide (Hctz -) 12.5 mg PO DAILY [facility] Last Admin: 09/26/17 09:59 Dose: 12.5 mg Lactated Ringer's (Lactated Ringers Solution) 1,000 mls @ 75 mls/hr IV ASDIR [facility] Last Admin: 09/27/17 04:15 Dose: 75 mls/hr Piperacillin/Tazobactam/Dextrose (Zosyn 2.25gm Ivpb (Premix)) 2.25 gm in 50 mls @ 100 mls/hr IVPB Q6H-IV [facility] Last Admin: 09/27/17 01:59 Dose: 100 mls/hr Levothyroxine Sodium (Synthroid -) 88 mcg PO DAILY@0700 [facility] Last Admin: 09/27/17 06:14 Dose: 88 mcg Metoprolol Tartrate (Lopressor -) 50 mg PO BID [facility] Last Admin: 09/26/17 21:32 Dose: 50 mg Morphine Sulfate (Morphine Injection -) 2 mg IVPUSH Q4H PRN PRN Reason: PAIN Pantoprazole Sodium (Protonix Iv) 40 mg IVPUSH DAILY [facility] Last Admin: 09/26/17 10:01 Dose: 40 mg Valsartan (Diovan -) 320 mg PO DAILY [facility] Last Admin: 09/26/17 10:00 Dose: 320 mg - Objective Vital Signs: Vital Signs Temperature 98.1 F 09/27/17 09:25 Pulse Rate 54 L 09/27/17 09:25 Respiratory Rate 18 09/27/17 09:25 Blood Pressure 154/61 09/27/17 09:25 O2 Sat by Pulse Oximetry (%) 98 09/26/17 21:00 Labs: CBC, BMP 09/27/17 08:00 INR, PTT INR 0.97 (0.82-1.09) 09/25/17 20:30 Problem List - Problems (1) Cholelithiasis and acute cholecystitis with obstruction Code(s): K80.01 - CALCULUS OF GALLBLADDER W ACUTE CHOLECYSTITIS W OBSTRUCTION (2) Cholelithiasis and acute cholecystitis with obstruction Code(s): K80.01 - CALCULUS OF GALLBLADDER W ACUTE CHOLECYSTITIS W OBSTRUCTION (3) Elevated liver enzymes Code(s): R74.8 - ABNORMAL LEVELS OF OTHER SERUM ENZYMES (4) Dilated cbd, acquired Code(s): K83.8 - OTHER SPECIFIED DISEASES OF BILIARY TRACT (5) Rapid atrial fibrillation Code(s): I48.91 - UNSPECIFIED ATRIAL FIBRILLATION Assessment/Plan Surgery: Patient has markedly elevated liver enzymes with normal serum bilirubin , raising the question of a component of non obstructive liver disease. Hida scan would be useful to rule out biliary obstruction . Patient refused to have nuclear biliary scan. CBD is marginally dilated (9mm,) on ultrasound. Patient is not very cooperative. Patient needs complete work up before any intervention .
[2017-09-27 10:33] LABS: SGOT/AST 527 U/L (15-37); SGPT/ALT 689 U/L (12-78)
--- NOTE | 2017-09-27 10:49 | PN ---
Progress Note, Physician History of Present Illness: Chart reviewed. Asymptomatic. Now agrees to PAIGE, HARINDER. - Current Medication List Current Medications: Active Medications Amlodipine Besylate (Norvasc -) 10 mg PO DAILY [facility] Last Admin: 09/26/17 10:01 Dose: 10 mg Heparin Sodium (Porcine) (Heparin -) 5,000 unit SQ BID [facility] Last Admin: 09/26/17 21:32 Dose: 5,000 unit Hydrochlorothiazide (Hctz -) 12.5 mg PO DAILY [facility] Last Admin: 09/26/17 09:59 Dose: 12.5 mg Lactated Ringer's (Lactated Ringers Solution) 1,000 mls @ 75 mls/hr IV ASDIR [facility] Last Admin: 09/27/17 04:15 Dose: 75 mls/hr Piperacillin/Tazobactam/Dextrose (Zosyn 2.25gm Ivpb (Premix)) 2.25 gm in 50 mls @ 100 mls/hr IVPB Q6H-IV [facility] Last Admin: 09/27/17 01:59 Dose: 100 mls/hr Levothyroxine Sodium (Synthroid -) 88 mcg PO DAILY@0700 [facility] Last Admin: 09/27/17 06:14 Dose: 88 mcg Metoprolol Tartrate (Lopressor -) 50 mg PO BID [facility] Last Admin: 09/26/17 21:32 Dose: 50 mg Morphine Sulfate (Morphine Injection -) 2 mg IVPUSH Q4H PRN PRN Reason: PAIN Pantoprazole Sodium (Protonix Iv) 40 mg IVPUSH DAILY [facility] Last Admin: 09/26/17 10:01 Dose: 40 mg Valsartan (Diovan -) 320 mg PO DAILY [facility] Last Admin: 09/26/17 10:00 Dose: 320 mg - Objective Vital Signs: Vital Signs Temperature 98.1 F 09/27/17 09:25 Pulse Rate 54 L 09/27/17 10:12 Respiratory Rate 18 09/27/17 09:25 Blood Pressure 154/61 09/27/17 09:25 O2 Sat by Pulse Oximetry (%) 96 09/27/17 10:12 Constitutional: Yes: No Distress, Calm Eyes: Yes: Conjunctiva Clear Gastrointestinal: Yes: Normal Bowel Sounds, Soft. No: Tenderness, Vomiting Neurological: Yes: Alert, Oriented Labs: CBC, BMP 09/27/17 08:00 09/27/17 08:00 INR, PTT INR 0.97 (0.82-1.09) 09/25/17 20:30 CBCD WBC 8.6 K/mm3 (4.0-10.0) 09/27/17 08:00 RBC 3.30 M/mm3 (3.60-5.2) L 09/27/17 08:00 Hgb 9.7 GM/dL (10.7-15.3) L 09/27/17 08:00 Hct 29.4 % (32.4-45.2) L 09/27/17 08:00 MCV 89.3 fl (80-96) 09/27/17 08:00 MCHC 32.8 g/dl (32.0-36.0) 09/27/17 08:00 RDW 13.8 % (11.6-15.6) 09/27/17 08:00 Plt Count 242 K/MM3 (134-434) 09/27/17 08:00 MPV 9.0 fl (7.5-11.1) 09/27/17 08:00 CMP Sodium 142 mmol/L (136-145) 09/27/17 08:00 Potassium 4.4 mmol/L (3.5-5.1) 09/27/17 08:00 Chloride 111 mmol/L (98-107) H 09/27/17 08:00 Carbon Dioxide 24 mmol/L (21-32) 09/27/17 08:00 Anion Gap 7 (8-16) L 09/27/17 08:00 BUN 33 mg/dL (7-18) H D 09/27/17 08:00 Creatinine 2.1 mg/dL (0.55-1.02) H 09/27/17 08:00 Creat Clearance w eGFR 22.60 (>60) 09/27/17 08:00 Calcium 8.5 mg/dL (8.5-10.1) 09/27/17 08:00 Total Bilirubin 1.6 mg/dL (0.2-1.0) H D 09/27/17 08:00 AST 527 U/L (15-37) H D 09/27/17 08:00 ALT 689 U/L (12-78) H D 09/27/17 08:00 Alkaline Phosphatase 236 U/L (45-117) H 09/27/17 08:00 Total Protein 6.5 g/dl (6.4-8.2) 09/27/17 08:00 Albumin 3.0 g/dl (3.4-5.0) L 09/27/17 08:00 - ....Imaging MRI: Pending Other: Pending (HIDA) Problem List - Problems (1) Hepatitis Code(s): K75.9 - INFLAMMATORY LIVER DISEASE, UNSPECIFIED (2) Cholecystitis Code(s): K81.9 - CHOLECYSTITIS, UNSPECIFIED (3) Elevated liver enzymes Code(s): R74.8 - ABNORMAL LEVELS OF OTHER SERUM ENZYMES (4) Rapid atrial fibrillation Code(s): I48.91 - UNSPECIFIED ATRIAL FIBRILLATION (5) Dilated cbd, acquired Code(s): K83.8 - OTHER SPECIFIED DISEASES OF BILIARY TRACT (6) Choledocholithiasis with acute cholecystitis Code(s): K80.42 - CALCULUS OF BILE DUCT W ACUTE CHOLECYSTITIS W/O OBSTRUCTION Assessment/Plan transaminases and ALP appeared to peak yesterday. Remains asymptomatic. HIDA today MRCP. 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 ago, per pt's daughter. Pt has PPM ID card on her. Need to have step down nurse, [employer], per hospital protocol , on site during the exam. WBC, hepatic profle, bili, ALP, electrolytes monitoring NPO except medications IVF hydration as tolerated
[2017-09-27] MEDS: PANTOPRAZOLE SODIUM 40 MG VIAL IVPUSH SCH (10:59)
[2017-09-27] MEDS: amLODIPine BESYLATE 10 MG TABLET (FP) PO SCH (11:02)
[2017-09-27] MEDS: HEPARIN NA (PORCINE) 5,000 UNITS/ML 1ML VIAL SQ SCH ×2 (11:02→21:31)
[2017-09-27] MEDS: VALSARTAN 160 MG TABLET (UD) PO SCH (11:02)
[2017-09-27] MEDS: METOPROLOL TARTRATE 50 MG TABLET (FP) PO SCH ×2 (11:02→21:30)
[2017-09-27] MEDS: HYDROCHLOROTHIAZIDE 12.5 MG CAPSULE (FP) PO SCH (11:03)
--- NOTE | 2017-09-27 13:13 | PN ---
Teaching Attending Note Name of Resident: Morro Serrato ATTENDING PHYSICIAN STATEMENT Time of evaluation: 10:30 AM I saw and evaluated the patient. I reviewed the resident's note and discussed the case with the resident. I agree with the resident's findings and plan as documented. SUBJECTIVE: Patient seen and examined. Reports lower and RMQ abdominal pain, crampy, no nausea, vomiting or diarrhea. no fevers or chills. No other complaints. OBJECTIVE: Vital Signs Period Temp Pulse Resp BP Sys/Griffin Pulse Ox Last 24 Hr 97.5 F-98.7 F 52-78 16-20 121-154/58-80 96-98 Intake & Output 09/24/17 09/25/17 09/26/17 09/27/17 23:59 23:59 23:59 23:59 Intake Total 550 500 Balance 550 500 Weight 152 lb 150 lb 14.4 oz General: lying in bed in no acute distress Abdomen: soft, reports pain in RMQ and bilateral lower abdominal areas but no tenderness on superficial or deep palpation, no voluntary or involuntary guarding or rigidity, positive bowel sounds, neg Roberson's sign, ND Extremities no edema Chest CTAB, no rales or wheezing Home Medication List Medication Instructions Recorded Confirmed Type Aspirin 81 mg PO DAILY 12/17/13 09/25/17 History Levothyroxine [Synthroid -] 88 mcg PO DAILY 12/17/13 09/25/17 History Amlodipine Besylate [Norvasc -] 10 mg PO DAILY 10/05/15 09/25/17 History Lactobacillus Acidophilus 1 each PO DAILY 10/05/15 09/25/17 History [Acidophilus] Lactobacillus Combo No.10 1 each PO DAILY 10/05/15 09/25/17 History [Probiotic] Metoprolol Tartrate [Lopressor] 50 mg PO BID 10/05/15 09/25/17 History Multivit-Min/Iron/Folic/Lutein 1 each PO DAILY 10/05/15 09/25/17 History [Centrum Silver Women Tablet] [place]-3 Fatty Acids [Fish Oil] 1,200 mg PO DAILY 10/05/15 09/25/17 History Valsartan/Hydrochlorothiazide 1 combo PO DAILY 10/05/15 09/25/17 History [Diovan Hct 320-12.5 mg Tab] Famotidine [Pepcid] 20 mg PO DAILY 09/25/17 09/25/17 History Active Medications Generic Name Dose Route Start Last Admin Trade Name Linus PRN Reason Stop Dose Admin Amlodipine Besylate 10 mg 09/26/17 10:00 09/27/17 11:02 Norvasc - PO 10 mg DAILY [facility] Administration Heparin Sodium (Porcine) 5,000 unit 09/26/17 17:00 09/27/17 11:02 Heparin - SQ Not Given BID [facility] Hydrochlorothiazide 12.5 mg 09/26/17 10:00 09/27/17 11:03 Hctz - PO 12.5 mg DAILY [facility] Administration Lactated Ringer's 1,000 mls @ 75 mls/hr 09/26/17 02:15 09/27/17 04:15 Lactated Ringers Solution IV 75 mls/hr ASDIR [facility] Administration Piperacillin/Tazobactam/Dextrose 2.25 gm in 50 mls @ 100 mls/hr 09/26/17 11: 15 09/27/17 10:47 Zosyn 2.25gm Ivpb (Premix) IVPB 100 mls/hr Q6H-IV [facility] Administration Levothyroxine Sodium 88 mcg 09/26/17 07:00 09/27/17 06:14 Synthroid - PO 88 mcg DAILY@0700 [facility] Administration Metoprolol Tartrate 50 mg 09/26/17 10:00 09/27/17 11:02 Lopressor - PO 50 mg BID [facility] Administration Morphine Sulfate 2 mg 09/26/17 03:10 Morphine Injection - IVPUSH Q4H PRN PAIN Pantoprazole Sodium 40 mg 09/26/17 10:00 09/27/17 10:59 Protonix Iv IVPUSH 40 mg DAILY [facility] Administration Valsartan 320 mg 09/26/17 10:00 09/27/17 11:02 Diovan - PO 320 mg DAILY [facility] Administration Laboratory Results - last 24 hr 09/25/17 09/27/17 09/27/17 22:08 08:00 08:00 WBC 8.6 RBC 3.30 L Hgb 9.7 L Hct 29.4 L MCV 89.3 MCH 29.3 MCHC 32.8 RDW 13.8 Plt Count 242 MPV 9.0 Sodium 142 Potassium 4.4 Chloride 111 H Carbon Dioxide 24 Anion Gap 7 L BUN 33 H D Creatinine 2.1 H Creat Clearance w eGFR 22.60 Random Glucose 82 Calcium 8.5 Total Bilirubin 1.6 H D AST 527 H D ALT 689 H D Alkaline Phosphatase 236 H Total Protein 6.5 Albumin 3.0 L Ur Leukocyte Esterase Negative ASSESSMENT AND PLAN: 82 yof with PMHx of CAD s/p cath, Afib not on AC, tachybrady syndrome s/p PPM, choledocholithiasis admitted with Acute cholecystits/cholelithiasis -Acute cholecystitis/cholethiasis -Acute transaminitis -CAD s/p cath -Aifb not on anticoagulation -Tachybrady syndrome s/p PPM Plan: Surgery/GI input appreciated. LFTs still elevated but improved yesterday. abdominal symptoms resolved. Patient refused HIDA scan yesterday, discussed in detail about the need for study to guide further management and risks of non treatment including cholangitis, worsening abdominal symptoms, sepsis or . Patient relays understanding, agreable today, plan for HIDA/MRCP today (PPM MRI compatible as discussed with GI). Daughter updated on plan. Surgical plans pending above studies and cardiology input. Attempt to retrieve old records from outpatient ring conductor. 2D echo reviewed. Zosyn day 2, monitor for now. Continue lopressor/Valsartan/HCTZ/amlodipine with BP and hemodynamic monitoring. IVF with monitoring. will hold hCTZ in mel-operative period. Place on DVTPPX. Dispo pending resolution of medical issues.
--- NOTE | 2017-09-27 13:45 | PN ---
Progress Note (short form) - Note Progress Note: surgery pt seen and examined. full consult dictated. 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 82f with known cholelithiasis, told to have passed stones "10" times in the past, presents with upper abd pain, markedly elevated lfts, dilated cbd, and choleithiasis on u/s. Pt has had no pain for two days and has normal wbc. On exam abd is soft, nt, no surgical scars Plan- likely choledocholithiasis with possible passed stone vs retained. MRCP not possible at [facility] secondary to PPM. Once CBD shown to be clear by ERCP, or nearly normal lfts, would recommend semi-elective cholecystectomy to prevent future recurrence. This can be inpatient vs output pending clinical course and calender availability. If HIDA positive and GI opinion is that it is the source of abnormal lfts and not choledocholithiasis, would recommend percutaneous drainage and interval cholecystectomy. I discussed this in detail with the patient and her daughter the "dairy scientist". Despite interrupting me several times with unrelated information they both understand the problem and the next clinical steps. The patient did not want to involve her two physician sons in the conversation. I discussed the plan with the GI and medical service. Laboratory Tests 09/27/17 09/27/17 08:00 08:00 WBC 8.6 Total Bilirubin 1.6 H D AST 527 H D ALT 689 H D Alkaline Phosphatase 236 H
--- NOTE | 2017-09-27 14:52 | CONS ---
DATE OF CONSULTATION: 09/27/2017 REASON FOR CONSULTATION: Choledocholithiasis, cholelithiasis, abnormal liver function tests. This is a consultation at the request of the primary medical physician, Dr. Morro Whitten, as well as the patient's private bore mill operator, Dr. Mike Arnett. BRIEF HISTORY: This is an 82-year-old female who has known for 40 years that she has gallstones. She states that at least 10 times she has been told that a stone passed out of her gallbladder and caused her liver function tests to increase. She has never sought to have cholecystectomy for this recurrent problem. She was admitted to [facility] 2 days ago when she had 2 separate bouts of severe right upper quadrant abdominal pain. She was noted to have markedly elevated liver function tests, and she had an ultrasound done which showed a dilated common bile duct and stones within a thickened gallbladder. Her pain then resolved and she has remained pain free for the past 2 days and she was placed on Zosyn antibiotic. Her white blood cell count was initially elevated, now is normal. Her liver function tests, however, remain markedly elevated. Patient had been seen by Dr. Verma of General Surgery, and the case has been managed by him, but she has fired him from her service and is requesting a different surgeon. PAST MEDICAL HISTORY: Significant for atrial fibrillation. She does not take a blood thinner. She also has congestive heart failure, gallstones, pacemaker placement. PAST SURGICAL HISTORY: The pacemaker placement. SOCIAL HISTORY: Significant for quitting tobacco many years ago. HOME MEDICATIONS: Include aspirin, Synthroid, Norvasc, Lopressor, valsartan, and Pepcid. FAMILY HISTORY: Noncontributory. REVIEW OF SYSTEMS: General: Denies fatigue or malaise. Cardiac: Denies chest pain or palpitations. Respiratory: Denies shortness of breath or wheeze. Gastrointestinal: As stated in HPI. Denies diarrhea. Denies blood in her stool. Denies recent weight loss. Genitourinary: Denies dysuria. Musculoskeletal: Denies joint pain and joint swelling. Psychiatric: Denies anxiety, depression, or hearing voices. PHYSICAL EXAMINATION: General: This is a thin, 82-year-old female in no distress. Vital Signs: She is afebrile and has been throughout the admission. HEENT: Her head is normocephalic. Her sclerae are anicteric. Neck: Supple. Chest: Clear. Abdomen: Soft. There are no surgical scars. She is nontender. Extremities: Trace edema. DIAGNOSTIC DATA: On review of her laboratory, her white blood cell count is normal at 8.6. It was 15 on admission. Her chemistries show a markedly elevated total bilirubin of 1.6. Her AST is 527, her ALT is 689, and her alkaline phosphatase is 236. Her ultrasound shows a 9-mm dilated common bile duct. ASSESSMENT AND PLAN: This is an 82-year-old female with multiple medical problems, with markedly elevated liver function tests and a dilated common bile duct in the setting of gallstones. Clinically, she has choledocholithiasis with cholelithiasis. Although it is possible that she has passed a stone with her continuing elevation of her liver function tests, this is unlikely. At this point, an MRI has been ordered, although the patient has refused it previously, delaying her treatment. Currently, however, an MRI is not feasible I have been told because of her pacemaker. At this point, patient should consider a cholecystectomy prior to discharge once her common bile duct has been shown to be clear of stones. This can either be accomplished by either an ERCP or following her liver function tests until they trend to near normal. Currently, a HIDA scan is ordered, and I have low suspicion for acute cholecystitis. If the HIDA scan is positive and the GI opinion is that her markedly liver function tests are due to acute cholecystitis even though the patient is pain free, nontender, with a normal white blood cell count and if the y feel that that is the source of the liver function tests and not a stone in the common bile duct, at that point, I would recommend a percutaneous drainage of her gallbladder which should then allow her liver function tests to normalize if, indeed, the gallbladder is the source. In that case, I would do an interval cholecystectomy in approximately 3 weeks once her liver function tests were normal. At this point, I will follow the patient closely with you. I discussed the case with her bore mill operator, Dr. Henson, as well as her primary care team. 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 Despite the fact that the mother and the daughter interrupted me multiple times with unrelated information, I feel that they do understand the situation and the next diagnostic steps. Patient is currently nontoxic, pain free, no fever, and normal white blood cell count, and I will follow the patient closely with you. DO CANDIDO LORD/[id number]
--- NOTE | 2017-09-27 17:06 | CON.GI ---
Consult Consult Specialty:: GI: Dr. Mendoza for Dr. Cali: Biliary consultation Referred by:: Dr. Ranulfo Henson Reason for Consultation:: Abnormal LFTs - History of Present Illness Chief Complaint: Abnormal liver chemistries History of Present Illness: 82F admitted through [facility] ER for evaluation of abdominal pain. Ms. Porras is vague in terms of the location of the pain as she says it was "all over" and all over her body as well. She could not further explain if her pain was localized to the RUQ or epigastrium. She did describe associated nausea along with episodes of vomiting. In the ER she was noted to have an elevated WBC, elevated AST/ALT and ALP. Since admission transaminitis and elevated alkaline phosphatase have improved while bilirubin has risen. Abd US revealed a 9mm CBD without dilated intrahepatics, thickened GB, sludge and large stone in the GB neck. She has been evaluated by Dr. Henson, english language arts teacher and Dr. Verma, surgeon, given biliary tract findings. Further work-up included a HIDA scan, that was just performed this evening as well as MRI/MRCP. MRCP could not be performed because of issues with Ms. Porras having a PPM. Dr. Verma was asked to be taken off the case and Dr. Burns subsequently evaluated her. His concern was for choledocholithiasis and requested that the bile duct be evaluated further prior to cholecystectomy. Dr. Cali was consulted for potential ERCP. I spoke with Dr. Burns and intraop cholangiogram is not an option. She has had no abdominal pain since admission aside from this morning. The pain at that time seemed to be alleviated by a bowel movement. 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 Place of : [place] Home Medications - Allergies Allergies/Adverse Reactions: Allergies Allergy/AdvReac Type Severity Reaction Status Date / Time Sulfa (Sulfonamide Allergy Verified 09/25/17 19:07 Antibiotics) - Home Medications Home Medications: Ambulatory Orders Aspirin 81 mg PO DAILY 12/17/13 Levothyroxine [Synthroid -] 88 mcg PO DAILY 12/17/13 Amlodipine Besylate [Norvasc -] 10 mg PO DAILY 10/05/15 Lactobacillus Acidophilus [Acidophilus] 1 each PO DAILY 10/05/15 Lactobacillus Combo No.10 [Probiotic] 1 each PO DAILY 10/05/15 Metoprolol Tartrate [Lopressor] 50 mg PO BID 10/05/15 Multivit-Min/Iron/Folic/Lutein [Centrum Silver Women Tablet] 1 each PO DAILY [place]-3 Fatty Acids [Fish Oil] 1,200 mg PO DAILY 10/05/15 Valsartan/Hydrochlorothiazide [Diovan Hct 320-12.5 mg Tab] 1 combo PO DAILY Famotidine [Pepcid] 20 mg PO DAILY 09/25/17 Family Disease History - Family Disease History Family Disease History: Other: Father (: 64: DM/CAD), Mother ( 90: Leukemia), Son (2, healthy), Daughter (1, healthty) Other Family History: No siblings. No family history of colorectal cancer Review of Systems - Review of Systems Constitutional: denies: Chills, Fever Cardiovascular: denies: Chest Pain, Shortness of Breath Respiratory: denies: Cough Gastrointestinal: reports: Nausea, Vomiting Musculoskeletal: denies: Back Pain Physical Exam-GI Vital Signs: Vital Signs Temperature 98.1 F 09/27/17 09:25 Pulse Rate 54 L 09/27/17 10:12 Respiratory Rate 18 09/27/17 09:25 Blood Pressure 154/61 09/27/17 09:25 O2 Sat by Pulse Oximetry (%) 96 09/27/17 10:12 Constitutional: Yes: Calm Eyes: No: Sclera Icterus Cardiovascular: Yes: Regular Rate and Rhythm. No: Murmur Respiratory: Yes: CTA Bilaterally Gastrointestinal Inspection: No: Distention, Scars ...Auscultate: Yes: Normoactive Bowel Sounds ...Palpate: No: Hepatomegaly, Soft, Splenomegaly ...Percussion: No: Tympanitic ...Rectal Exam: Yes: Other (Patient refused) Edema: No (No LE edema) Neurological: Yes: Alert Labs: CBC, BMP 09/27/17 08:00 09/27/17 08:00 INR, PTT INR 0.97 (0.82-1.09) 09/25/17 20:30 Imaging - Results Ultrasound: Report Reviewed Problem List - Problems (1) Elevated liver enzymes Assessment/Plan: By description of severe nausea, vomiting associated with her abdominal pain and abnormal liver chemistry pattern I agree that there is likely a biliary source. The possibility of cholecystitis (awaiting HIDA results and Ms. Porras currently being maintained on Abx) would need to be considered as well as retained / passed CBD stone. While cholecystectomy will clearly be needed, MRI for further evaluation of the bile duct is not an option at this facility given the constraints that Ms. Jose PPM pose. Intraop cholangiogram is also not an option per Dr. Burns. I discussed the possibility of ERCP with Whit, Ms. Porras' daughter via telephone tonight a way of evaluating the bile duct and performing therapeutics such as stone extraction. We discussed potential risks of the procedure like but not limited to bleeding, perforation requiring surgery to repair, infection, sedation medication effects, pancreaitis (that can occur in 5-10% of cases) all of which could be potentially life threatening. Other options were discussed as well including transfer to the facility where Ms. Jose primary english language arts teacher practices (Dr. Arnett at [facility]) or where she can potentially have MRCP (however I explained that I was uncertain as to which hospital could facilitate that) . I did also explain to her that with persistent elevation in liver chemistries, even in the setting of a negative MRCP (5-10% chance of missing small intraductal stone per the literature) ERCP could still be necessary. I discussed the above with Ms. Porras as well as potential risks of the procedure (Ms. Porras' nurse Elizabeth was present when I discussed this with her). She would like to meet Dr. Cali prior to any invasive testing. I discussed the case with Dr. Cali and he will be evaluating Ms. Porras. Code(s): R74.8 - ABNORMAL LEVELS OF OTHER SERUM ENZYMES
--- NOTE | 2017-09-27 19:58 | PN ---
Progress Note (short form) - Note Progress Note: GI Addendum Note: I discussed the case earlier with Dr Mendoza who spent a great deal of time discussing ERCP for extraction of suspected CBD stones with Mrs. Porras, her daughter and with her son. He told me that Mrs. Porras wanted to meet me in person before making a decision so I came in and introduced myself tonight as the doctor who would do the ERCP. I again discussed the role for the ERCP and answered Mrs. 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 She told me that her daughter had already contacted Dr Arnett to make arrangements. Please recall us if we can be of any help to Dr Henson. Her nurse Elizabeth was in attendance.
[2017-09-28] MEDS: PIPERACILLIN/TAZOB 2.25 GM 2.25 GM/50 ML BAG IVPB SCH ×4 (02:36→20:47)
[2017-09-28] MEDS: LACTATED RINGERS SOLUTION 1,000 ML IV SCH (06:58)
[2017-09-28] MEDS: LEVOTHYROXINE NA 88 MCG TABLET (FP) PO SCH (06:59)
[2017-09-28 07:42] LABS: BASOPHIL 0.8 % (0-2.0); EOSINOPHIL 5.2 % (0-4.5); MCHC 32.7 g/dl (32.0-36.0); MEAN CELL VOLUME 88.7 fl (80-96); MEAN PLT VOLUME 8.9 fl (7.5-11.1); NEUTROPHILS 65.7 % (42.8-82.8); PLATELET COUNT 276 K/MM3 (134-434); RDW 13.8 % (11.6-15.6); WHITE BLOOD COUNT 11.3 K/mm3 (4.0-10.0)
[2017-09-28 08:18] LABS: ALBUMIN 3.5 g/dl (3.4-5.0); ANION GAP 16 (8-16); BILIRUBIN,DIRECT 0.3 mg/dL (0.0-0.2); BILIRUBIN,TOTAL 1.4 mg/dL (0.2-1.0); CALCIUM 9.4 mg/dL (8.5-10.1); CO2 20 mmol/L (21-32); GLUCOSE,RANDOM 61 mg/dL (74-106); SGOT/AST 291 U/L (15-37)
[2017-09-28 08:19] LABS: ALK PHOS 235 U/L (45-117); TOT PROT 7.7 g/dl (6.4-8.2)
[2017-09-28 08:31] LABS: SGPT/ALT 572 U/L (12-78)
[2017-09-28] MEDS ORDERED: DEXTROSE 5%-NORMAL SALINE 1,000 ML IV SCH (09:00)
--- NOTE | 2017-09-28 09:08 | PN ---
Progress Note, Physician History of Present Illness: Chart reviewed. Asymptomatic. Ambulating. Daughter at bedside. The patient and the daughter want the ERCP to be done by her hiv/aids care nurse. They are also discussing with him if an MRI can be arranged first elsewhere. - Current Medication List Current Medications: Active Medications Amlodipine Besylate (Norvasc -) 10 mg PO DAILY [facility] Last Admin: 09/27/17 11:02 Dose: 10 mg Heparin Sodium (Porcine) (Heparin -) 5,000 unit SQ BID [facility] Last Admin: 09/27/17 21:31 Dose: Not Given Hydrochlorothiazide (Hctz -) 12.5 mg PO DAILY [facility] Last Admin: 09/27/17 11:03 Dose: 12.5 mg Lactated Ringer's (Lactated Ringers Solution) 1,000 mls @ 75 mls/hr IV ASDIR [facility] Last Admin: 09/28/17 06:58 Dose: 75 mls/hr Piperacillin/Tazobactam/Dextrose (Zosyn 2.25gm Ivpb (Premix)) 2.25 gm in 50 mls @ 100 mls/hr IVPB Q6H-IV [facility] Last Admin: 09/28/17 02:36 Dose: 100 mls/hr Levothyroxine Sodium (Synthroid -) 88 mcg PO DAILY@0700 [facility] Last Admin: 09/28/17 06:59 Dose: 88 mcg Metoprolol Tartrate (Lopressor -) 50 mg PO BID [facility] Last Admin: 09/27/17 21:30 Dose: Not Given Morphine Sulfate (Morphine Injection -) 2 mg IVPUSH Q4H PRN PRN Reason: PAIN Pantoprazole Sodium (Protonix Iv) 40 mg IVPUSH DAILY [facility] Last Admin: 09/27/17 10:59 Dose: 40 mg Valsartan (Diovan -) 320 mg PO DAILY [facility] Last Admin: 09/27/17 11:02 Dose: 320 mg - Objective Vital Signs: Vital Signs Temperature 97.9 F 09/28/17 07:58 Pulse Rate 63 09/28/17 07:58 Respiratory Rate 18 09/28/17 07:58 Blood Pressure 136/57 09/28/17 07:58 O2 Sat by Pulse Oximetry (%) 96 09/27/17 21:00 Constitutional: Yes: No Distress, Calm Eyes: Yes: Conjunctiva Clear Gastrointestinal: No: Tenderness Labs: CBC, BMP 09/28/17 06:00 09/28/17 06:00 INR, PTT INR 0.97 (0.82-1.09) 09/25/17 20:30 CBCD WBC 11.3 K/mm3 (4.0-10.0) H D 09/28/17 06:00 RBC 3.76 M/mm3 (3.60-5.2) 09/28/17 06:00 Hgb 10.9 GM/dL (10.7-15.3) D 09/28/17 06:00 Hct 33.3 % (32.4-45.2) 09/28/17 06:00 MCV 88.7 fl (80-96) 09/28/17 06:00 MCHC 32.7 g/dl (32.0-36.0) 09/28/17 06:00 RDW 13.8 % (11.6-15.6) 09/28/17 06:00 Plt Count 276 K/MM3 (134-434) 09/28/17 06:00 MPV 8.9 fl (7.5-11.1) 09/28/17 06:00 CMP Sodium 144 mmol/L (136-145) 09/28/17 06:00 Potassium 4.3 mmol/L (3.5-5.1) 09/28/17 06:00 Chloride 108 mmol/L (98-107) H 09/28/17 06:00 Carbon Dioxide 20 mmol/L (21-32) L 09/28/17 06:00 Anion Gap 16 (8-16) 09/28/17 06:00 BUN 29 mg/dL (7-18) H 09/28/17 06:00 Creatinine 2.0 mg/dL (0.55-1.02) H 09/28/17 06:00 Creat Clearance w eGFR 22.60 (>60) 09/27/17 08:00 Calcium 9.4 mg/dL (8.5-10.1) 09/28/17 06:00 Total Bilirubin 1.4 mg/dL (0.2-1.0) H 09/28/17 06:00 AST 291 U/L (15-37) H D 09/28/17 06:00 ALT 572 U/L (12-78) H 09/28/17 06:00 Alkaline Phosphatase 235 U/L (45-117) H 09/28/17 06:00 Total Protein 7.7 g/dl (6.4-8.2) 09/28/17 06:00 Albumin 3.5 g/dl (3.4-5.0) 09/28/17 06:00 Problem List - Problems (1) Hepatitis Code(s): K75.9 - INFLAMMATORY LIVER DISEASE, UNSPECIFIED (2) Cholecystitis Code(s): K81.9 - CHOLECYSTITIS, UNSPECIFIED (3) Elevated liver enzymes Code(s): R74.8 - ABNORMAL LEVELS OF OTHER SERUM ENZYMES (4) Rapid atrial fibrillation Code(s): I48.91 - UNSPECIFIED ATRIAL FIBRILLATION (5) Dilated cbd, acquired Code(s): K83.8 - OTHER SPECIFIED DISEASES OF BILIARY TRACT (6) Choledocholithiasis with acute cholecystitis Code(s): K80.42 - CALCULUS OF BILE DUCT W ACUTE CHOLECYSTITIS W/O OBSTRUCTION Assessment/Plan Liver enzymes, ALP, and bili continue to improve. Remains asymptomatic. HIDA results pending (prelim: GB not visualized). Will likely need and an intervention PPM is MRI compatible, however radiology protocol wouldn't allow for the study to be done here. The patient is contemplating doing it elsewhere and is in talks with her hiv/aids care nurse regarding this and possible ERCP, if the MRCP cannot be done. An Endoscopic EUS can assess CBD for lesions, however this study is not available here. I could discuss EUS with [facility] biliary service , if patient agrees. NPO except medications IVF hydration as tolerated Continue Abx
[2017-09-28 09:14] LABS: CHOLESTEROL 290 mg/dL (50-200)
[2017-09-28 09:21] LABS: THYROID STIMULATING HORMONE 1.15 uIU/ml (0.358-3.74)
[2017-09-28] MEDS: amLODIPine BESYLATE 10 MG TABLET (FP) PO SCH (09:43)
[2017-09-28] MEDS: VALSARTAN 160 MG TABLET (UD) PO SCH (09:43)
[2017-09-28] MEDS: PANTOPRAZOLE SODIUM 40 MG VIAL IVPUSH SCH (09:43)
[2017-09-28] MEDS: HYDROCHLOROTHIAZIDE 12.5 MG CAPSULE (FP) PO SCH (09:44)
[2017-09-28] MEDS: METOPROLOL TARTRATE 50 MG TABLET (FP) PO SCH ×2 (09:44→21:01)
--- NOTE | 2017-09-28 11:18 | EKG ---
Test Reason : Blood Pressure : / mmHG Vent. Rate : 056 BPM Atrial Rate : 300 BPM P-R Int : 000 ms QRS Dur : 084 ms QT Int : 454 ms P-R-T Axes : 000 020 019 degrees QTc Int : 438 ms PROBABLE SINUS BRADYCARDIA, VERIFY A-V CONDUCTION LOW VOLTAGE QRS ABNORMAL ECG Confirmed by VICKY SOLIZ MD ([id number]) on 09/28/2017 11:18:18 AM Referred By: Confirmed By:VICKY SOLIZ MD
--- NOTE | 2017-09-28 11:32 | PN ---
Progress Note (short form) - Note Progress Note: surgery events noted. pt refusing ERCP at [facility] and looking to arrange services at other hospitals. Lfts still elevated. Laboratory Tests 09/28/17 09/28/17 09/28/17 06:00 06:00 06:00 WBC 11.3 H D Total Bilirubin 1.4 H Direct Bilirubin 0.3 H AST 291 H D ALT 572 H Alkaline Phosphatase 235 H still concerned for choledocholithiasis. suboptimal 2 hour HIDA shows no gb filling but clinically doubt acute cholecystitis. If there is clinical concern can do percutaneous drainage with interval cholecystectomy. will be re-eval for cholecystectomy as inpatient or outpatient once ercp done and lfts normalize. Plan discussed with medical team.
--- NOTE | 2017-09-28 13:57 | PN ---
Physical Exam: SUBJECTIVE: Patient seen and examined at bedside. Denies any GI complaints. Patient is NPO for ERCP. OBJECTIVE: Vital Signs Period Temp Pulse Resp BP Sys/Griffin Pulse Ox Last 24 Hr 97.9 F-98.4 F 54-69 18-20 136-151/57-72 96 GENERAL: The patient is awake, alert, and fully oriented, in no acute distress. HEAD: Normal with no signs of trauma. EYES: PERRL, extraocular movements intact, sclera anicteric, conjunctiva clear. No ptosis. LUNGS: Breath sounds equal, clear to auscultation bilaterally, no wheezes, no crackles, no accessory muscle use. HEART: Regular rate and rhythm, S1, S2 without murmur, rub or gallop. ABDOMEN: Soft, nontender, nondistended, normoactive bowel sounds, no guarding, no rebound, no hepatosplenomegaly, no masses. SKIN: Warm, dry, normal turgor, no rashes or lesions noted Laboratory Results - last 24 hr 09/28/17 09/28/17 09/28/17 06:00 06:00 06:00 WBC 11.3 H D RBC 3.76 Hgb 10.9 D Hct 33.3 MCV 88.7 MCH 29.0 MCHC 32.7 RDW 13.8 Plt Count 276 MPV 8.9 Neutrophils % 65.7 Lymphocytes % 22.3 Monocytes % 6.0 Eosinophils % 5.2 H Basophils % 0.8 Sodium 144 Potassium 4.3 Chloride 108 H Carbon Dioxide 20 L Anion Gap 16 BUN 29 H Creatinine 2.0 H Random Glucose 61 L D Calcium 9.4 Total Bilirubin 1.4 H Direct Bilirubin 0.3 H 0.3 H AST 291 H D ALT 572 H Alkaline Phosphatase 235 H Total Protein 7.7 Albumin 3.5 Triglycerides 262 H Cholesterol 290 H Total LDL Cholesterol 176 H HDL Cholesterol 61 H TSH 1.15 09/28/17 09/28/17 08:25 08:25 WBC RBC Hgb Hct MCV MCH MCHC RDW Plt Count MPV Neutrophils % Lymphocytes % Monocytes % Eosinophils % Basophils % Sodium Potassium Chloride Carbon Dioxide Anion Gap BUN Creatinine Random Glucose Calcium Total Bilirubin Direct Bilirubin AST ALT Alkaline Phosphatase Total Protein Albumin Triglycerides Cancelled Cholesterol Cancelled Total LDL Cholesterol Cancelled HDL Cholesterol Cancelled TSH Cancelled Active Medications Generic Name Dose Route Start Last Admin Trade Name Freq PRN Reason Stop Dose Admin Amlodipine Besylate 10 mg 09/26/17 10:00 09/28/17 09:43 Norvasc - PO 10 mg DAILY [facility] Administration Heparin Sodium (Porcine) 5,000 unit 09/26/17 17:00 09/27/17 21:31 Heparin - SQ Not Given BID [facility] Hydrochlorothiazide 12.5 mg 09/26/17 10:00 09/28/17 09:44 Hctz - PO 12.5 mg DAILY [facility] Administration Lactated Ringer's 1,000 mls @ 75 mls/hr 09/26/17 02:15 09/28/17 06:58 Lactated Ringers Solution IV 75 mls/hr ASDIR [facility] Administration Piperacillin/Tazobactam/Dextrose 2.25 gm in 50 mls @ 100 mls/hr 09/26/17 11: 15 09/28/17 11:17 Zosyn 2.25gm Ivpb (Premix) IVPB 100 mls/hr Q6H-IV [facility] Administration Dextrose/Sodium Chloride 1,000 mls @ 75 mls/hr 09/28/17 09:00 09/28/17 09:44 D5-Ns - IV Not Given ASDIR [facility] Levothyroxine Sodium 88 mcg 09/26/17 07:00 09/28/17 06:59 Synthroid - PO 88 mcg DAILY@0700 [facility] Administration Metoprolol Tartrate 50 mg 09/26/17 10:00 09/28/17 09:44 Lopressor - PO 50 mg BID [facility] Administration Morphine Sulfate 2 mg 09/26/17 03:10 Morphine Injection - IVPUSH Q4H PRN PAIN Pantoprazole Sodium 40 mg 09/26/17 10:00 09/28/17 09:43 Protonix Iv IVPUSH 40 mg DAILY [facility] Administration Valsartan 320 mg 09/26/17 10:00 09/28/17 09:43 Diovan - PO 320 mg DAILY [facility] Administration ASSESSMENT/PLAN: US Liver: Fatty infiltration cholelithiasis and gallbladder wall thickening; cholecystitis; CBD 9mm Echo: RV systolic pressure elevated at 30-40mmhg, mild mitral valve thickening, moderate tricuspid regurgitation HIDA: nonfilling of gallbladder and cystic duct obstruction suggestive of acute cholecystitis 82 year old female with a past medical history of afib, CAD s/p cath and pacemaker placement, tachy-nadir syndrome, HTN, hiatal hernia, HLD, and hypothyroidism is admitted to the hospital with acute cholecystitis and choledocholithiasis. #Acute Cholecystitis: symptoms have currently resolved. -d/w dr. boss - patient is up for transfer to [facility] under accepting physician Dr Trice Galvin. Facilitate transfer -pain management morphine 2mg IV push Q4 PRN -pt unable to receive MRCP at this hospital due to pacemaker #Hypertension/CAD -continue norvasc 10mg PO QD -continue HCTZ 12.5mg PO QD -continue metoprolol 50mg PO BID -continue valsartan 320mg PO QD #Hypothyroidism -continue synthroid 88mcg PO QD 7am #Afib - rhythm controlled, in sinus rhythm as of April #FEN -NPO -electrolytes within normal limits, repeat CMP in AM -lactated ringers #Prophylaxis -pantoprazole 40mg IV QD #Disposition -continue to monitor on floors -full code Visit type - Emergency Visit Emergency Visit: No - New Patient This patient is new to me today: No - Critical Care Critical Care patient: No
[2017-09-28] MEDS ORDERED: LIDOCAINE HCL/PF 2% SDV 5ML VIAL ONE (14:36)
[2017-09-28] MEDS ORDERED: ROCURONIUM BROMIDE 50 MG/5 ML VIAL ONE (14:36)
[2017-09-28] MEDS ORDERED: PROPOFOL 20 ML ONE (14:36)
[2017-09-28] MEDS ORDERED: fentaNYL CITRATE 250 MCG/5 ML VIAL ONE (14:37)
[2017-09-28] MEDS ORDERED: PHENYLEPHRINE HCL 10 MG/1 ML SINGLE DOSE VIAL ONE (14:37)
[2017-09-28] MEDS ORDERED: SUCCINYLCHOLINE CHLORIDE 200 MG/10 ML VIAL ONE (14:37)
[2017-09-28] MEDS ORDERED: ePHEDrine SULFATE 50 MG/1 ML AMPULE ONE (14:37)
[2017-09-28] MEDS ORDERED: ESMOLOL HCL 100,000 MCG/10 ML VIAL ONE (14:37)
[2017-09-28] MEDS ORDERED: DEXAMETHASONE SOD PHOSPHATE 10 MG/1 ML VIAL ONE (14:38)
[2017-09-28] MEDS ORDERED: ONDANSETRON 4 MG/2 ML VIAL ONE (14:38)
--- NOTE | 2017-09-28 15:17 | PN ---
Progress Note, Physician History of Present Illness: Patient is an 82F with history of afib, CAD s/p cath and DDD pacemaker, tachy- nadir syndrome, hiatal hernia, HLD, and hypothyroidism here today complaining of sudden onset of RUQ abdominal pain which began today at 4 pm. Patient states that earlier in the day she ate non fatty food. Patient states that she had two episodes of the pain and both times the pain resolved on its own. Patient states that the pain was 10/10 at its worst and felt like strangulated bowel. Patient states she never had this kind of pain before. She states that the pain radiates to her right back. She also reports that she felt nauseous with the pain but denies any episodes of vomiting. She states that she had a large bowel movement this morning that was bulky, but normal color. Patient reports increased flatulence and belching. Patient currently denies fever, chills, dizziness, nausea, vomiting, abdominal pain, diarrhea, constipation or dysuria. - Current Medication List Current Medications: Active Medications Amlodipine Besylate (Norvasc -) 10 mg PO DAILY [facility] Last Admin: 09/28/17 09:43 Dose: 10 mg Heparin Sodium (Porcine) (Heparin -) 5,000 unit SQ BID [facility] Last Admin: 09/27/17 21:31 Dose: Not Given Hydrochlorothiazide (Hctz -) 12.5 mg PO DAILY [facility] Last Admin: 09/28/17 09:44 Dose: 12.5 mg Lactated Ringer's (Lactated Ringers Solution) 1,000 mls @ 75 mls/hr IV ASDIR [facility] Last Admin: 09/28/17 06:58 Dose: 75 mls/hr Piperacillin/Tazobactam/Dextrose (Zosyn 2.25gm Ivpb (Premix)) 2.25 gm in 50 mls @ 100 mls/hr IVPB Q6H-IV [facility] Last Admin: 09/28/17 11:17 Dose: 100 mls/hr Dextrose/Sodium Chloride (D5-Ns -) 1,000 mls @ 75 mls/hr IV ASDIR [facility] Last Admin: 09/28/17 09:44 Dose: Not Given Levothyroxine Sodium (Synthroid -) 88 mcg PO DAILY@0700 [facility] Last Admin: 09/28/17 06:59 Dose: 88 mcg Metoprolol Tartrate (Lopressor -) 50 mg PO BID [facility] Last Admin: 09/28/17 09:44 Dose: 50 mg Morphine Sulfate (Morphine Injection -) 2 mg IVPUSH Q4H PRN PRN Reason: PAIN Pantoprazole Sodium (Protonix Iv) 40 mg IVPUSH DAILY [facility] Last Admin: 09/28/17 09:43 Dose: 40 mg Valsartan (Diovan -) 320 mg PO DAILY [facility] Last Admin: 09/28/17 09:43 Dose: 320 mg - Objective Vital Signs: Vital Signs Temperature 97.9 F 09/28/17 10:00 Pulse Rate 55 L 09/28/17 10:00 Respiratory Rate 18 09/28/17 10:00 Blood Pressure 138/58 09/28/17 10:00 O2 Sat by Pulse Oximetry (%) 96 09/27/17 21:00 Eyes: Yes: WNL, Conjunctiva Clear, EOM Intact HENT: Yes: WNL, Atraumatic, Normocephalic Neck: Yes: WNL, Supple, Trachea Midline Cardiovascular: Yes: WNL, Regular Rate and Rhythm Respiratory: Yes: WNL, Regular, CTA Bilaterally Gastrointestinal: Yes: WNL, Normal Bowel Sounds Genitourinary: Yes: WNL Musculoskeletal: Yes: WNL Extremities: Yes: WNL Edema: No Integumentary: Yes: WNL Neurological: Yes: WNL, Alert, Oriented ...Motor Strength: WNL Psychiatric: Yes: WNL Labs: CBC, BMP 09/28/17 06:00 09/28/17 06:00 INR, PTT INR 0.97 (0.82-1.09) 09/25/17 20:30 Assessment/Plan s/p DDD PPM tachy nadir sx htn ?ashd hypothyroidism ? PAF poor informant states does not have cardiologists Cholelithiasis with obstruction of gallbladdder echo nl ef Plan : ERCP willf/u
--- NOTE | 2017-09-28 16:25 | PN ---
Progress Note (short form) - Note Progress Note: GI Procedure NOte: Please see ERCP report. Unable to cannulate. Have discussed the case with Dr Trice Galvin who has accepted Mrs. Porras for transfer to undergo further evaluation there. The patient and her daughter are agreeable to [facility] transfer. I discussed the case wit Dr Henson and Dr Serrato to make them aware.
--- NOTE | 2017-09-28 16:36 | PN ---
Progress Note (short form) - Note Progress Note: Called [facility] transfer service and provided patient's and accepting physician info. Await call back Problem List - Problems (1) Hepatitis Code(s): K75.9 - INFLAMMATORY LIVER DISEASE, UNSPECIFIED (2) Cholecystitis Code(s): K81.9 - CHOLECYSTITIS, UNSPECIFIED (3) Elevated liver enzymes Code(s): R74.8 - ABNORMAL LEVELS OF OTHER SERUM ENZYMES (4) Rapid atrial fibrillation Code(s): I48.91 - UNSPECIFIED ATRIAL FIBRILLATION (5) Dilated cbd, acquired Code(s): K83.8 - OTHER SPECIFIED DISEASES OF BILIARY TRACT (6) Choledocholithiasis with acute cholecystitis Code(s): K80.42 - CALCULUS OF BILE DUCT W ACUTE CHOLECYSTITIS W/O OBSTRUCTION
[2017-09-28] MEDS ORDERED: PT OWN MED DRAWER 7, Y5N ONE (17:23)
--- NOTE | 2017-09-28 17:50 | PN ---
Teaching Attending Note Name of Resident: Morro Serrato ATTENDING PHYSICIAN STATEMENT Time of evaluation: 11:00 AM I saw and evaluated the patient. I reviewed the resident's note and discussed the case with the resident. I agree with the resident's findings and plan as documented. SUBJECTIVE: Patient seen and examined, no nausea/vomiting/abdominal pain/fevers/chills or new complaints. Agreable to MRCP today. OBJECTIVE: Vital Signs Period Temp Pulse Resp BP Sys/Griffin Pulse Ox Last 24 Hr 97.6 F-98.4 F 51-67 16-20 136-156/41-64 96-100 Intake & Output 09/25/17 09/26/17 09/27/17 09/28/17 23:59 23:59 23:59 23:59 Intake Total 550 2500 1500 Balance 550 2500 1500 Weight 152 lb 150 lb 14.4 oz General: no acute distress CVS: S1s2 regular Chest: cTAB, no rales or wheezing abdomen: soft, NT, ND, neg Roberson's sign, no voluntary or involuntary guarding or rigidity extremities no edema Home Medication List Medication Instructions Recorded Confirmed Type Aspirin 81 mg PO DAILY 12/17/13 09/25/17 History Levothyroxine [Synthroid -] 88 mcg PO DAILY 12/17/13 09/25/17 History Amlodipine Besylate [Norvasc -] 10 mg PO DAILY 10/05/15 09/25/17 History Lactobacillus Acidophilus 1 each PO DAILY 10/05/15 09/25/17 History [Acidophilus] Lactobacillus Combo No.10 1 each PO DAILY 10/05/15 09/25/17 History [Probiotic] Metoprolol Tartrate [Lopressor] 50 mg PO BID 10/05/15 09/25/17 History Multivit-Min/Iron/Folic/Lutein 1 each PO DAILY 10/05/15 09/25/17 History [Centrum Silver Women Tablet] [place]-3 Fatty Acids [Fish Oil] 1,200 mg PO DAILY 10/05/15 09/25/17 History Valsartan/Hydrochlorothiazide 1 combo PO DAILY 10/05/15 09/25/17 History [Diovan Hct 320-12.5 mg Tab] Famotidine [Pepcid] 20 mg PO DAILY 09/25/17 09/25/17 History Active Medications Generic Name Dose Route Start Last Admin Trade Name Freq PRN Reason Stop Dose Admin Amlodipine Besylate 10 mg 09/26/17 10:00 09/28/17 09:43 Norvasc - PO 10 mg DAILY [facility] Administration Heparin Sodium (Porcine) 5,000 unit 09/26/17 17:00 09/27/17 21:31 Heparin - SQ Not Given BID [facility] Hydrochlorothiazide 12.5 mg 09/26/17 10:00 09/28/17 09:44 Hctz - PO 12.5 mg DAILY [facility] Administration Lactated Ringer's 1,000 mls @ 75 mls/hr 09/26/17 02:15 09/28/17 06:58 Lactated Ringers Solution IV 75 mls/hr ASDIR [facility] Administration Piperacillin/Tazobactam/Dextrose 2.25 gm in 50 mls @ 100 mls/hr 09/26/17 11: 15 09/28/17 11:17 Zosyn 2.25gm Ivpb (Premix) IVPB 100 mls/hr Q6H-IV [facility] Administration Levothyroxine Sodium 88 mcg 09/26/17 07:00 09/28/17 06:59 Synthroid - PO 88 mcg DAILY@0700 [facility] Administration Metoprolol Tartrate 50 mg 09/26/17 10:00 09/28/17 09:44 Lopressor - PO 50 mg BID [facility] Administration Morphine Sulfate 2 mg 09/26/17 03:10 Morphine Injection - IVPUSH Q4H PRN PAIN Pantoprazole Sodium 40 mg 09/26/17 10:00 09/28/17 09:43 Protonix Iv IVPUSH 40 mg DAILY [facility] Administration Valsartan 320 mg 09/26/17 10:00 09/28/17 09:43 Diovan - PO 320 mg DAILY [facility] Administration ASSESSMENT AND PLAN: 82 yof with PMHx of CAD s/p cath, Afib not on AC, tachybrady syndrome s/p PPM, choledocholithiasis admitted with Acute cholecystits/cholelithiasis -Acute cholecystitis/cholethiasis/Choledocholithiasis -Acute transaminitis -Hypoglycemia -CAD s/p cath -Aifb not on anticoagulation -Tachybrady syndrome s/p PPM Plan: s/p ERCP today, unable to cannulate, plan for trasnfer to [place] when bed available. HIDA scan positive. Surgery input noted. Zosyn day 3, monitor for now. Change IVF to D5NS at 75, glucometer checks. Continue lopressor/Valsartan/HCTZ/amlodipine with BP and hemodynamic monitoring. IVF with monitoring. will hold hCTZ in mel-operative period. DVTPPX. Dispo to [place] when bed available, for ERCP, monitor closely in the interim..
[2017-09-28] MEDS: DEXTROSE 5%-NORMAL SALINE 1,000 ML IV SCH (20:51)
[2017-09-28] MEDS: HEPARIN NA (PORCINE) 5,000 UNITS/ML 1ML VIAL SQ SCH (21:01)
[2017-09-29] MEDS: PIPERACILLIN/TAZOB 2.25 GM 2.25 GM/50 ML BAG IVPB SCH ×4 (03:32→23:05)
[2017-09-29] MEDS: LEVOTHYROXINE NA 88 MCG TABLET (FP) PO SCH (06:04)
[2017-09-29 08:06] LABS: BASOPHIL 0.5 % (0-2.0); EOSINOPHIL 0.1 % (0-4.5); MCH 29.4 pg (25.7-33.7); MCHC 33.3 g/dl (32.0-36.0); MEAN CELL VOLUME 88.5 fl (80-96); MEAN PLT VOLUME 9.2 fl (7.5-11.1); NEUTROPHILS 77.8 % (42.8-82.8); PLATELET COUNT 274 K/MM3 (134-434); RDW 13.3 % (11.6-15.6); WHITE BLOOD COUNT 10.6 K/mm3 (4.0-10.0)
[2017-09-29 08:22] LABS: C-REACTIVE PROTEIN 0.9 MG/DL (0.00-0.3)
[2017-09-29 08:25] LABS: ALBUMIN 3.2 g/dl (3.4-5.0); ALK PHOS 200 U/L (45-117); ANION GAP 8 (8-16); BILIRUBIN,DIRECT 0.2 mg/dL (0.0-0.2); BILIRUBIN,TOTAL 0.8 mg/dL (0.2-1.0); CALCIUM 8.6 mg/dL (8.5-10.1); CO2 24 mmol/L (21-32); GLUCOSE,RANDOM 144 mg/dL (74-106); SGOT/AST 140 U/L (15-37); TOT PROT 7.2 g/dl (6.4-8.2)
[2017-09-29 08:43] LABS: SGPT/ALT 413 U/L (12-78)
--- NOTE | 2017-09-29 08:53 | PN ---
Progress Note, Physician Chief Complaint: No chest pain or SOB - Current Medication List Current Medications: Active Medications Amlodipine Besylate (Norvasc -) 10 mg PO DAILY [facility] Last Admin: 09/28/17 09:43 Dose: 10 mg Heparin Sodium (Porcine) (Heparin -) 5,000 unit SQ BID [facility] Last Admin: 09/28/17 21:01 Dose: Not Given Hydrochlorothiazide (Hctz -) 12.5 mg PO DAILY [facility] Last Admin: 09/28/17 09:44 Dose: 12.5 mg Piperacillin/Tazobactam/Dextrose (Zosyn 2.25gm Ivpb (Premix)) 2.25 gm in 50 mls @ 100 mls/hr IVPB Q6H-IV [facility] Last Admin: 09/29/17 03:32 Dose: 100 mls/hr Dextrose/Sodium Chloride (D5-Ns -) 1,000 mls @ 75 mls/hr IV ASDIR [facility] Last Admin: 09/28/17 20:51 Dose: 75 mls/hr Levothyroxine Sodium (Synthroid -) 88 mcg PO DAILY@0700 [facility] Last Admin: 09/29/17 06:04 Dose: 88 mcg Metoprolol Tartrate (Lopressor -) 50 mg PO BID [facility] Last Admin: 09/28/17 21:01 Dose: 50 mg Pantoprazole Sodium (Protonix Iv) 40 mg IVPUSH DAILY [facility] Last Admin: 09/28/17 09:43 Dose: 40 mg Valsartan (Diovan -) 320 mg PO DAILY [facility] Last Admin: 09/28/17 09:43 Dose: 320 mg - Objective Vital Signs: Vital Signs Temperature 98.3 F 09/29/17 06:00 Pulse Rate 80 09/29/17 06:00 Respiratory Rate 18 09/29/17 06:00 Blood Pressure 136/52 09/29/17 06:00 O2 Sat by Pulse Oximetry (%) 96 09/28/17 21:00 Constitutional: Yes: No Distress Cardiovascular: Yes: Regular Rate and Rhythm Respiratory: Yes: CTA Bilaterally Gastrointestinal: Yes: Soft (no rebound or guarding) Edema: No Neurological: Yes: Alert, Oriented Labs: CBC, BMP 09/29/17 06:00 09/29/17 06:00 INR, PTT INR 0.97 (0.82-1.09) 09/25/17 20:30 Microbiology 09/26/17 11:30 Blood - Peripheral Venous Blood Culture - Preliminary NO GROWTH OBTAINED AFTER 48 HOURS, INCUBATION TO CONTINUE FOR 3 DAYS. 09/26/17 11:17 Blood - Peripheral Venous Blood Culture - Preliminary NO GROWTH OBTAINED AFTER 48 HOURS, INCUBATION TO CONTINUE FOR 3 DAYS. Laboratory Tests 09/29/17 09/29/17 06:00 06:00 WBC 10.6 H Hgb 10.2 L Plt Count 274 Sodium 142 Potassium 4.0 BUN 27 H Creatinine 2.0 H AST 140 H D ALT 413 H D Alkaline Phosphatase 200 H Assessment/Plan Assessment/Plan s/p DDD PPM tachy nadir sx htn ?ashd hypothyroidism ? PAF poor informant states does not have cardiologists Cholelithiasis with obstruction of gallbladdder echo nl ef Plan : ERCP non-diagnostic. Plan is for transfer to [place]. Stable from CV standpoint at this time.
[2017-09-29] MEDS: PANTOPRAZOLE SODIUM 40 MG VIAL IVPUSH SCH (10:43)
[2017-09-29] MEDS: VALSARTAN 160 MG TABLET (UD) PO SCH (10:44)
[2017-09-29] MEDS: HYDROCHLOROTHIAZIDE 12.5 MG CAPSULE (FP) PO SCH (10:44)
[2017-09-29] MEDS: HEPARIN NA (PORCINE) 5,000 UNITS/ML 1ML VIAL SQ SCH ×2 (10:45→22:20)
[2017-09-29] MEDS: amLODIPine BESYLATE 10 MG TABLET (FP) PO SCH (10:45)
[2017-09-29] MEDS: METOPROLOL TARTRATE 50 MG TABLET (FP) PO SCH ×2 (10:45→23:08)
--- NOTE | 2017-09-29 11:27 | PN ---
Teaching Attending Note Name of Resident: Srini Yan ATTENDING PHYSICIAN STATEMENT Time of evaluation: 9:10 AM I saw and evaluated the patient. I reviewed the resident's note and discussed the case with the resident. I agree with the resident's findings and plan as documented. SUBJECTIVE: Patient seen and examined. No nausea, vomiting or abdominal pain. No new fevers or chills. Reports some diarrhea today. OBJECTIVE: Vital Signs Period Temp Pulse Resp BP Sys/Griffin Pulse Ox Last 24 Hr 97.4 F-98.3 F 50-80 16-20 132-156/41-73 96-100 Intake & Output 09/26/17 09/27/17 09/28/17 09/29/17 23:59 23:59 23:59 23:59 Intake Total 550 2500 2350 900 Balance 550 2500 2350 900 Weight 150 lb 14.4 oz ASSESSMENT AND PLAN: 82 yof with PMHx of CAD s/p cath, Afib not on AC, tachybrady syndrome s/p PPM, choledocholithiasis admitted with Acute cholecystits/cholelithiasis -Acute cholecystitis/cholethiasis/Choledocholithiasis -Acute transaminitis -Hypoglycemia -CAD s/p cath -Aifb not on anticoagulation -Tachybrady syndrome s/p PPM Plan: s/p ERCP 09/28, unable to cannulate, plan for trasnfer to [place] when bed available. HIDA scan positive. Surgery input noted. Zosyn day 4, monitor for now. Diarrhea today, check Stool C defficile. Placed on clears by GI, continue D5NS with glucometer checks till adequate PO. Continue lopressor/Valsartan/HCTZ/amlodipine with BP and hemodynamic monitoring. IVF with monitoring. will hold hCTZ in mel-operative period. DVTPPX. Dispo to [place] when bed available, for ERCP, monitor closely in the interim. Plan discussed with patient in detail, all questions answered.
--- NOTE | 2017-09-29 13:10 | PN ---
GI Progress Note Subjective: GI ( covering Dr Henson) : Hanna is pain free today and very hungry. LFTs are improving. No pancreatitis following attempted cannulations - Objective Vital Signs: Vital Signs Temperature 97.9 F 09/29/17 10:00 Pulse Rate 57 L 09/29/17 10:00 Respiratory Rate 18 09/29/17 10:00 Blood Pressure 145/57 09/29/17 10:00 O2 Sat by Pulse Oximetry (%) 96 09/28/17 21:00 Laboratory Tests 09/29/17 09/29/17 09/29/17 06:00 06:00 06:00 Hgb 10.2 L Hct 30.6 L Total Bilirubin 0.8 D Direct Bilirubin 0.2 D AST 140 H D ALT 413 H D Alkaline Phosphatase 200 H C-Reactive Protein 0.9 H Total Amylase 84 Lipase 218 Constitutional: Anxious ...Palpate: Yes: Soft, Other (nontender) Labs: CBC, BMP 09/29/17 06:00 09/29/17 06:00 INR, PTT INR 0.97 (0.82-1.09) 09/25/17 20:30 Assessment/Plan Day 1 s/p attempted unsuccessful ERCP. 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 Await transfer to [facility] [place] where MRCP or EUS may obviate the need to repeat ERCP. Will try low fat diet.
[2017-09-29] MEDS: DEXTROSE 5%-NORMAL SALINE 1,000 ML IV SCH ×2 (15:28→18:44)
[2017-09-29] MEDS: BISMUTH SUBSALICYLATE 262 MG TAB.CHEW PO SCH ×2 (18:48→23:06)
[2017-09-30] MEDS ORDERED: PT OWN MED DRAWER 7, Y5N ONE ×2 (03:02→17:44)
[2017-09-30] MEDS: PIPERACILLIN/TAZOB 2.25 GM 2.25 GM/50 ML BAG IVPB SCH ×4 (03:04→22:59)
[2017-09-30] MEDS: DEXTROSE 5%-NORMAL SALINE 1,000 ML IV SCH ×2 (05:52→22:54)
[2017-09-30] MEDS: LEVOTHYROXINE NA 88 MCG TABLET (FP) PO SCH (06:06)
[2017-09-30] MEDS: BISMUTH SUBSALICYLATE 262 MG TAB.CHEW PO SCH ×3 (06:13→23:06)
[2017-09-30 08:23] LABS: BASOPHIL 0.9 % (0-2.0); EOSINOPHIL 4.3 % (0-4.5); MCH 29.4 pg (25.7-33.7); MEAN PLT VOLUME 9.3 fl (7.5-11.1); NEUTROPHILS 64.6 % (42.8-82.8); PLATELET COUNT 218 K/MM3 (134-434); RDW 13.8 % (11.6-15.6); WHITE BLOOD COUNT 8.4 K/mm3 (4.0-10.0)
[2017-09-30 08:51] LABS: C-REACTIVE PROTEIN 0.5 MG/DL (0.00-0.3)
[2017-09-30 08:52] LABS: ALBUMIN 2.9 g/dl (3.4-5.0); ANION GAP 10 (8-16); BILIRUBIN,DIRECT 0.2 mg/dL (0.0-0.2); BILIRUBIN,TOTAL 0.6 mg/dL (0.2-1.0); CALCIUM 8.4 mg/dL (8.5-10.1); CO2 24 mmol/L (21-32); CREATININE 2.3 mg/dL (0.55-1.02); GLUCOSE,RANDOM 100 mg/dL (74-106); SGOT/AST 83 U/L (15-37); SGPT/ALT 287 U/L (12-78)
[2017-09-30 08:53] LABS: ALK PHOS 148 U/L (45-117); TOT PROT 6.3 g/dl (6.4-8.2)
[2017-09-30] MEDS: METOPROLOL TARTRATE 50 MG TABLET (FP) PO SCH ×3 (09:30→22:59)
[2017-09-30] MEDS: amLODIPine BESYLATE 10 MG TABLET (FP) PO SCH (09:30)
[2017-09-30] MEDS: HYDROCHLOROTHIAZIDE 12.5 MG CAPSULE (FP) PO SCH (09:30)
[2017-09-30] MEDS: VALSARTAN 160 MG TABLET (UD) PO SCH (09:30)
[2017-09-30] MEDS: PANTOPRAZOLE SODIUM 40 MG VIAL IVPUSH SCH (09:31)
[2017-09-30] MEDS: HEPARIN NA (PORCINE) 5,000 UNITS/ML 1ML VIAL SQ SCH ×3 (09:31→22:54)
--- NOTE | 2017-09-30 11:40 | PN ---
GI Progress Note Subjective: GI NOte ( covering Dr Henson) : No pain. Tolerating solid diet. LFTs continue to improve. Hopefully she has passed the CBD stone but will still need MRCP or EUS to confirm this before going to ERCP or surgery. Awaiting transfer to [facility] [place] for this. Cause of anemia is unclear but she claims her enoscopies are up to date with Dr Mike Arnett. - Objective Vital Signs: Vital Signs Temperature 97.8 F 09/30/17 10:00 Pulse Rate 56 L 09/30/17 10:00 Respiratory Rate 18 09/30/17 10:00 Blood Pressure 151/69 09/30/17 10:00 O2 Sat by Pulse Oximetry (%) 97 09/29/17 21:00 Laboratory Tests 09/30/17 09/30/17 09/30/17 06:00 06:00 06:00 WBC 8.4 Hgb 8.9 L D Hct 27.1 L Total Bilirubin 0.6 D Direct Bilirubin 0.2 ALT 287 H D Alkaline Phosphatase 148 H D C-Reactive Protein 0.5 H D Total Amylase 73 Lipase 267 Constitutional: Anxious ...Auscultate: Yes: Normoactive Bowel Sounds ...Palpate: Yes: Soft, Other (nontender) Labs: CBC, BMP 09/30/17 06:00 09/30/17 06:00 INR, PTT INR 0.97 (0.82-1.09) 09/25/17 20:30 Assessment/Plan Day 2 s/p attempted unsuccessful ERCP. No pancreatitis. LFTs improving. Will try to order stool for occult blood ( there is a [place] glitch for thsi order) . Await transfer to [facility] [place] where MRCP or EUS may obviate the need to repeat ERCP.
--- NOTE | 2017-09-30 12:15 | PN ---
Teaching Attending Note Name of Resident: . ATTENDING PHYSICIAN STATEMENT Time of evaluation: 10;10 AM I saw and evaluated the patient. I reviewed the resident's note and discussed the case with the resident. I agree with the resident's findings and plan as documented. SUBJECTIVE: Patient seen and examined. No nausea, vomiting or abdominal pain. Tolerating diet, diarrhea improved. OBJECTIVE: Vital Signs Period Temp Pulse Resp BP Sys/Griffin Pulse Ox Last 24 Hr 97.3 F-98.2 F 50-60 16-20 118-151/51-70 97 Intake & Output 09/27/17 09/28/17 09/29/17 09/30/17 23:59 23:59 23:59 23:59 Intake Total 2500 2350 2325 525 Balance 2500 2350 2325 525 General: sitting in bed in no acute distress CVS: S1S2 regular chest: CTAB, no rales or wheezing Abdomen: soft, NT, ND, positive bowel sounds, neg Roberson's sign Extremities: no edema Home Medication List Medication Instructions Recorded Confirmed Type Aspirin 81 mg PO DAILY 12/17/13 09/25/17 History Levothyroxine [Synthroid -] 88 mcg PO DAILY 12/17/13 09/25/17 History Amlodipine Besylate [Norvasc -] 10 mg PO DAILY 10/05/15 09/25/17 History Lactobacillus Acidophilus 1 each PO DAILY 10/05/15 09/25/17 History [Acidophilus] Lactobacillus Combo No.10 1 each PO DAILY 10/05/15 09/25/17 History [Probiotic] Metoprolol Tartrate [Lopressor] 50 mg PO BID 10/05/15 09/25/17 History Multivit-Min/Iron/Folic/Lutein 1 each PO DAILY 10/05/15 09/25/17 History [Centrum Silver Women Tablet] [place]-3 Fatty Acids [Fish Oil] 1,200 mg PO DAILY 10/05/15 09/25/17 History Valsartan/Hydrochlorothiazide 1 combo PO DAILY 10/05/15 09/25/17 History [Diovan Hct 320-12.5 mg Tab] Famotidine [Pepcid] 20 mg PO DAILY 09/25/17 09/25/17 History Active Medications Generic Name Dose Route Start Last Admin Trade Name Freq PRN Reason Stop Dose Admin Amlodipine Besylate 10 mg 09/26/17 10:00 09/30/17 09:30 Norvasc - PO 10 mg DAILY AUNDREA Administration Bismuth Subsalicylate 262 mg 09/29/17 22:00 09/30/17 09:32 Pepto-Bismol - PO 262 mg BID AUNDREA Administration Heparin Sodium (Porcine) 5,000 unit 09/26/17 17:00 09/30/17 10:15 Heparin - SQ Not Given BID AUNDREA Hydrochlorothiazide 12.5 mg 09/26/17 10:00 09/30/17 09:30 Hctz - PO 12.5 mg DAILY AUNDREA Administration Piperacillin/Tazobactam/Dextrose 2.25 gm in 50 mls @ 100 mls/hr 09/26/17 11: 15 09/30/17 09:30 Zosyn 2.25gm Ivpb (Premix) IVPB 100 mls/hr Q6H-IV AUNDREA Administration Dextrose/Sodium Chloride 1,000 mls @ 75 mls/hr 09/28/17 18:00 09/30/17 05:52 D5-Ns - IV 75 mls/hr ASDIR AUNDREA Administration Levothyroxine Sodium 88 mcg 09/26/17 07:00 09/30/17 06:06 Synthroid - PO 88 mcg DAILY@0700 AUNDREA Administration Metoprolol Tartrate 50 mg 09/26/17 10:00 09/30/17 09:30 Lopressor - PO 50 mg BID AUNDREA Administration Pantoprazole Sodium 40 mg 09/26/17 10:00 09/30/17 09:31 Protonix Iv IVPUSH 40 mg DAILY AUNDREA Administration Valsartan 320 mg 09/26/17 10:00 09/30/17 09:30 Diovan - PO 320 mg DAILY AUNDREA Administration Laboratory Results - last 24 hr 09/30/17 09/30/17 09/30/17 06:00 06:00 06:00 WBC 8.4 RBC 3.04 L Hgb 8.9 L D Hct 27.1 L MCV 89.0 MCH 29.4 MCHC 33.0 RDW 13.8 Plt Count 218 D MPV 9.3 Neutrophils % 64.6 Lymphocytes % 21.8 D Monocytes % 8.4 Eosinophils % 4.3 D Basophils % 0.9 Sodium 145 Potassium 4.1 Chloride 111 H Carbon Dioxide 24 Anion Gap 10 BUN 27 H Creatinine 2.3 H Creat Clearance w eGFR 20.35 POC Glucometer Random Glucose 100 D Calcium 8.4 L Total Bilirubin 0.6 D Direct Bilirubin 0.2 AST 83 H D ALT 287 H D Alkaline Phosphatase 148 H D C-Reactive Protein 0.5 H D Total Protein 6.3 L Albumin 2.9 L Total Amylase 73 Lipase 267 09/30/17 11:23 WBC RBC Hgb Hct MCV MCH MCHC RDW Plt Count MPV Neutrophils % Lymphocytes % Monocytes % Eosinophils % Basophils % Sodium Potassium Chloride Carbon Dioxide Anion Gap BUN Creatinine Creat Clearance w eGFR POC Glucometer 130 Random Glucose Calcium Total Bilirubin Direct Bilirubin AST ALT Alkaline Phosphatase C-Reactive Protein Total Protein Albumin Total Amylase Lipase Microbiology 09/26/17 11:17 Blood - Peripheral Venous Blood Culture - Preliminary NO GROWTH OBTAINED AFTER 96 HOURS, INCUBATION TO CONTINUE FOR 1 DAYS. 09/26/17 11:30 Blood - Peripheral Venous Blood Culture - Preliminary NO GROWTH OBTAINED AFTER 96 HOURS, INCUBATION TO CONTINUE FOR 1 DAYS. 09/29/17 11:29 Stool Clostridium difficile Antigen (ELVIN) - Final 09/29/17 11:29 Stool Clostridium difficile Toxin Assay - Final ASSESSMENT AND PLAN: 82 yof with PMHx of CAD s/p cath, Afib not on AC, tachybrady syndrome s/p PPM, choledocholithiasis admitted with Acute cholecystits/cholelithiasis -Acute cholecystitis/cholethiasis/Choledocholithiasis -Acute transaminitis -Hypoglycemia -CAD s/p cath -Aifb not on anticoagulation -Tachybrady syndrome s/p PPM Plan: s/p ERCP 09/28, unable to cannulate, plan for trasnfer to [facility] when bed available. HIDA scan positive. Surgery input noted. Zosyn day 5, monitor for now. Diarrhea improved, Stool C difficile neg. Continue bismuth Placed on clears by GI, continue D5NS with glucometer checks till adequate PO. Continue lopressor/Valsartan/HCTZ/amlodipine with BP and hemodynamic monitoring. IVF with monitoring. will hold hCTZ in mel-operative period. DVTPPX. Dispo to [facility] when bed available, for ERCP, monitor closely in the interim. Plan on NPO after midnight for possible transfer to [facility] tomorrow for ERCP. ?MRCP vs EUS may obliterate need for ERCP. Plan discussed with patient in detail, all questions answered.
--- NOTE | 2017-09-30 14:22 | DS ---
Physical Examination Vital Signs: Vital Signs Temperature 97.8 F 09/30/17 10:00 Pulse Rate 56 L 09/30/17 10:00 Respiratory Rate 18 09/30/17 10:00 Blood Pressure 151/69 09/30/17 10:00 O2 Sat by Pulse Oximetry (%) 97 09/29/17 21:00 Constitutional: Yes: Well Nourished, No Distress, Calm Eyes: Yes: WNL, Conjunctiva Clear, EOM Intact HENT: Yes: WNL Neck: Yes: Supple Cardiovascular: Yes: Regular Rate and Rhythm Respiratory: Yes: Regular, CTA Bilaterally Gastrointestinal: Yes: WNL, Normal Bowel Sounds, Soft Extremities: Yes: WNL Labs: CBC, BMP 09/30/17 06:00 09/30/17 06:00 Discharge Summary Reason For Visit: CHOLECYSTITIS, ELEVATED LIVER ENZYMES, VOMITING Current Active Problems Anemia (Acute) CKD (chronic kidney disease) (Acute) Cholecystitis (Acute) Choledocholithiasis with acute cholecystitis (Acute) Cholelithiasis and acute cholecystitis with obstruction (Acute) Cholelithiasis and acute cholecystitis with obstruction (Acute) Dilated cbd, acquired (Acute) Elevated liver enzymes (Acute) Hepatitis (Acute) Vomiting (Acute) Procedures: Principal: ERCP Hospital Course: Patient was admitted with abdominal pain and had abdominal ultrasound showing sludge and cholelithiasis with gall bladder wall thicking, large stone in Gall bladder neck, extra hepatic biliary duct measuring 9 mm. She had abnormal LFTs which peaked on day 2 with AST 1152, ALT 944 and Alk Phos 270. Her bilirubin was normal. She was maintained NPO with IV hydration. Her LFTs trended down with conservative management and her AST is 83, ALT 247 and Alk phos 148. She is pain free. Her PPM was noted MRI compatible, however she was unable to get MRCP. She received ERCP with Dr. Powell but was unsuccessful as was unable to cannulate. She had HIDA scan that showed non filling of gall bladder 2 hours later suggestive of cystic duct obstruction and acute cholecystitis vs chronic severe cholecystitis. She was maintained on zosyn during her stay with no fevers or leucocytosis. She was also evaluated by cardiology for clearance in case would need surgery. She had 2D echo showing dilated left ventricle with reported EF 66.6%, moderately dilated left and right atrium, mild mitral regurgitation, moderately thickened mitral valve, moderate tricuspid regurgitation and RV systolic pressures 30-40 mm Hg. Plan is to retrieve her prior cardiac records and PPM interrogation which will need to be pursued at the accepting facility in case patient needs surgery. She was also evaluated by surgery and advised to have ERCP and if successful, eventual plan for cholecystectomy. She may be able to get MRCP vs EUS which may obliterate need for ERCP at the accepting facility. Post ERCP she has been on low fat diarrhea, which she is tolerating. She had diarrhea over last 2 days, her Stool C difficile has been negative and has improved with bismuth. She has anemia with hemoglobin today 8.9 , but no gross evidence of bleeding and will need to be monitoring further. She has CKD and her creatinine has been around 2 during her stay. Condition: Improved - Instructions Diet, Activity, Other Instructions: You are being transferred to [facility] for ERCP vs MRCP/EUS and continued care. Of your home medications, your Aspirin 81 mg is currently on hold and will need to be resumed based on gastrointestinal work up and surgical plans. Referrals: Shannan Pedraza [Primary Care Provider] - Disposition: TRANSFER ACUTE CARE/OTHER HOSP - Home Medications Comprehensive Discharge Medication List: Ambulatory Orders Levothyroxine [Synthroid -] 88 mcg PO DAILY 12/17/13 Amlodipine Besylate [Norvasc -] 10 mg PO DAILY 10/05/15 Lactobacillus Acidophilus [Acidophilus] 1 each PO DAILY 10/05/15 Metoprolol Tartrate [Lopressor] 50 mg PO BID 10/05/15 Multivit-Min/Iron/Folic/Lutein [Centrum Silver Women Tablet] 1 each PO DAILY [place]-3 Fatty Acids [Fish Oil] 1,200 mg PO DAILY 10/05/15 Valsartan/Hydrochlorothiazide [Diovan Hct 320-12.5 mg Tab] 1 combo PO DAILY Bismuth Subsalicylate [Pepto-Bismol -] 262 mg PO BID tab.chew 09/30/17 Dextrose 5%-Normal Saline [D5-Ns -] 1,000 ml IV ASDIR infus.bag 09/30/17 Heparin - 5,000 unit SQ BID vial 09/30/17 Morphine Injection - [Morphine Injection 2 mg/1 mL -] 2 mg IVPUSH Q4H PRN disp.syrin MDD 8 mg 09/30/17 Pantoprazole Sodium [Protonix IV] 40 mg IVPUSH DAILY vial 09/30/17 Piperacillin/Tazob 2.25 gm [Zosyn 2.25GM Ivpb (Premix)] 2.25 gm IV Q6H 5 Days froz.areligy 09/30/17 This patient is new to me today: No Emergency Visit: No Critical Care patient: No - Discharge Referral Referred to [facility] No
[2017-09-30 23:24] VITALS: BP 149/64; PULSE 60; TEMP 97.4
--- NOTE | 2017-10-01 09:00 | CONS ---
DATE OF CONSULTATION: 09/26/2017 REQUESTING PHYSICIAN: The hospitalist service. HISTORY OF PRESENT ILLNESS: This is an 82-year-old woman who lives alone here in a townhouse in [place]. She is very active. She has a history of atrial fibrillation, heart failure, and permanent pacemaker. As well, she tells me she was told that she had gallstones many, many years ago. She is followed by a physician at [facility]. She yesterday evening was preparing to go to [facility] to see a show. She developed acute abdominal pain so severe that she called her daughter and canceled. About an hour later, she felt much better. Se decided she would go to the [facility]. She got ready and again had severe abdominal pain. Her daughter came over, and she was in such severe pain, they brought her to the emergency room. She notes chills, but states she chronically has chills. She denies any nausea or vomiting. She has a history of chronic constipation, moves her bowels every 3 days, and had a large bowel movement yesterday. Since the abdominal pain which prompted the ER evaluation, she has not had any further abdominal pain. She denies shortness of breath or chest pain. She was noted in the emergency room to have a white count of 15.2, elevated transaminases. She had an abdominal ultrasound that showed cholelithiasis, gallbladder wall thickening, and possible gallstone at the neck of the gallbladder, and dilated extrahepatic duct. She was given a dose of Zosyn and admitted and surgery consult was requested. This morning, she is pain free, she is ambulating. On repeat labs, she now has an elevated bilirubin and her transaminases have all doubled. I am asked to see her for antibiotics. PAST MEDICAL HISTORY: As stated is notable for atrial fibrillation not on AC, tachycardia-bradycardia syndrome with pacemaker placement, hiatal hernia, chronic kidney disease, diastolic heart failure, hyperlipidemia, hypothyroidism. 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 MEDICATIONS AT HOME: Include aspirin, Synthroid, ferrous gluconate, Norvasc, acidophilus, Diovan, fish oil, Centrum, Lopressor, Pepcid, amlodipine FAMILY HISTORY: Noncontributory. SOCIAL HISTORY: She is , 18 years ago. She has 3 adult children. There is no history of any cigarette or substance use. She is quite active and lives alone and is able to ambulate and drive a car. REVIEW OF SYSTEMS: Notable for chronic constipation. She appears to have a bowel movement every 3 days. She reports her PMD is a director payment, and she has had colonoscopies in the past with him. She is alert. ALLERGIES: SULFA MEDICATIONS. PHYSICAL EXAMINATION: General: She is resting comfortably. She is awake and alert. Vital signs: Temperature is 97.4. Her pulse is 63, blood pressure 154/74, respiratory rate 18, she weighs 152 pounds. HEENT: She is normocephalic. Her eyes are anicteric. Neck: Supple. Lungs: Clear to auscultation. Heart: Regular rate and rhythm. Abdomen: Soft, nontender. Extremities: Without edema. DIAGNOSTIC DATA: White count on admission was 15.2, hemoglobin 10.4, platelets 268. Her transaminases on admission were total bilirubin 0.8, AST 425, ALT 253, alkaline phosphatase 214; repeat this morning total bilirubin 1.1, creatinine is 1.9, AST of 1152, AST/ALT 944, and alkaline phosphatase of 270. Ultrasound findings as previously stated. SUMMARY: This is an 82-year-old woman with known gallstones for years, acute abdominal pain that subsided, recurred again, and came to the emergency room. She has no other complaints other than constipation. She has a pacemaker. No recent travel in the last year. No recent antibiotic use. No recent hospitalizations. Concerns would include cholecystitis, rule out common bile duct stone, possible choledocholithiasis. PLAN: GI consult, surgery consult, blood cultures, Zosyn to continue, CKB, further imaging per GI. Especially given the fact that she has a permanent pacemaker, given the rise in her transaminases, will obtain hepatitis serology as well for completeness. MCKENZIE REYES M.D. [id number]
== END 2017-10-01 00:08 | disposition short-term general hospital (02) | DRG 445 ==
LOC: JER 18:25 → JERBED 09-26 01:27 → J8W 09-26 03:17
PROVIDERS: ADMIT Internal Medicine; ATTEND Hospitalist
PROC: 0F7C8ZZ Dilation of Ampulla of Vater, Via Natural or Artificial Opening Endoscopic (ICD-10-PCS; 2017-09-28)
PROC: 0FJB8ZZ Inspection of Hepatobiliary Duct, Via Natural or Artificial Opening Endoscopic (ICD-10-PCS; principal; 2017-09-28 13:45)
DX: K80.43 Calculus of bile duct with acute cholecystitis with obstruction (principal); N17.9 Acute kidney failure, unspecified; I50.32 Chronic diastolic (congestive) heart failure; I13.0 Hypertensive heart and chronic kidney disease with heart failure and stage 1 through stage 4 chronic kidney disease, or unspecified chronic kidney disease; N18.9 Chronic kidney disease, unspecified; I25.10 Atherosclerotic heart disease of native coronary artery without angina pectoris; I48.91 Unspecified atrial fibrillation; E78.5 Hyperlipidemia, unspecified; E03.9 Hypothyroidism, unspecified; K44.9 Diaphragmatic hernia without obstruction or gangrene; K75.9 Inflammatory liver disease, unspecified; K21.9 Gastro-esophageal reflux disease without esophagitis; K59.09 Other constipation; D64.9 Anemia, unspecified; R11.2 Nausea with vomiting, unspecified; R74.8 Abnormal levels of other serum enzymes; D72.828 Other elevated white blood cell count; E16.1 Other hypoglycemia; A08.8 Other specified intestinal infections; Z87.891 Personal history of nicotine dependence; Z95.0 Presence of cardiac pacemaker; Z95.5 Presence of coronary angioplasty implant and graft
CPT/HCPCS: 36415; 71010-TC; 76000-TC; 76705-TC; 78226-TC; 80048; 80053; 80061; 80076; 81003; 82150; 82248; 82550; 83690; 83721; 83735; 84100; 84443; 84484; 85025; 85027; 85610; 86140; 86704; 86706; 86708; 87040; 87045; 87046; 87086; 87205; 87324; 87340; 87449; 93005; 93010; 93306-TC; 99282-25; A9537; J1644